=== PATIENT | male | born 1985 | race Caucasian/White ===

== ENCOUNTER 2017-04-15 15:09 | Inpatient (IN) | payer SELFPAY ==
[~2017-04-15] VITALS: Ht 193 cm; Wt 88.6 kg
--- OUTSIDE RECORDS SUMMARY | 2017-04-15 15:20 | XMS REPORT ---
Author Author HANNAH ROSARIO Organization [employer] Address Unknown Phone Unavailable Care Team Providers Care Fine Arts Model Name Role Phone HANNAH ROSARIO CP Unavailable Allergies No Known Allergies Problems Problem Type Condition Code Onset Dates Condition Status Problem Lumbago 724.2 Active Problem Insomnia, unspecified 780.52 Active Problem Thoracic or lumbosacral neuritis or radiculitis, unspecified 724.4 Active Assessment Scabies exposure Z20.89 Active Medications Medication Code System Code Instructions Start Date End Date Status Dosage Permethrin [facility] [address]-03 5 % Externally one time Dec 10, 2014 as directed at bedtime Results No Known Results Summary Purpose [employer] Submission
--- OUTSIDE RECORDS SUMMARY | 2017-04-15 15:20 | XMS REPORT | Continuity of Care Document ---
Author Author [facility] Address Unknown Phone Unavailable Allergies There is no data. Medications There is no data. Problems Date Dx Coded Attending Type Code Diagnosis Diagnosed By 03/13/2008 372.30 CONJUNCTIVITIS 03/13/2008 HANNAH ROSARIO APRN 372.30 CONJUNCTIVITIS 03/13/2008 372.30 CONJUNCTIVITIS 03/13/2008 372.30 CONJUNCTIVITIS 03/13/2008 372.30 CONJUNCTIVITIS 03/13/2008 FRANCISCO OLGUIN DO 372.30 CONJUNCTIVITIS 10/09/2010 300.00 anxiety 10/09/2010 305.1 NICOTINE DEPENDENCE 10/09/2010 780.79 FATIGUE 10/09/2010 780.99 loss of pleasure from usual activities (anhedonia) 10/09/2010 HANNAH ROSARIO APRN 300.00 anxiety 10/09/2010 HANNAH ROSARIO APRN 305.1 NICOTINE DEPENDENCE 10/09/2010 HANNAH ROSARIO APRN 780.79 FATIGUE 10/09/2010 HANNAH ROSARIO APRN 780.99 loss of pleasure from usual activities (anhedonia) 10/09/2010 300.00 anxiety 10/09/2010 305.1 NICOTINE DEPENDENCE 10/09/2010 780.79 FATIGUE 10/09/2010 780.99 loss of pleasure from usual activities (anhedonia) 10/09/2010 300.00 anxiety 10/09/2010 305.1 NICOTINE DEPENDENCE 10/09/2010 780.79 FATIGUE 10/09/2010 780.99 loss of pleasure from usual activities (anhedonia) 10/09/2010 300.00 anxiety 10/09/2010 305.1 NICOTINE DEPENDENCE 10/09/2010 780.79 FATIGUE 10/09/2010 780.99 loss of pleasure from usual activities (anhedonia) 10/09/2010 FRANCISCO OLGUIN DO 300.00 anxiety 10/09/2010 FRANCISCO OLGUIN DO 305.1 NICOTINE DEPENDENCE 10/09/2010 FRANCISCO OLGUIN DO 780.79 FATIGUE 10/09/2010 FRANCISCO OLGUIN DO 780.99 loss of pleasure from usual activities (anhedonia) 10/24/2010 296.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 10/24/2010 799.22 highly irritable 10/24/2010 HANNAH ROSARIO APRN 296.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 10/24/2010 HANNAH ROSARIO APRN 799.22 highly irritable 10/24/2010 296.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 10/24/2010 799.22 highly irritable 10/24/2010 296.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 10/24/2010 799.22 highly irritable 10/24/2010 296.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 10/24/2010 799.22 highly irritable 10/24/2010 FRANCISCO OLGUIN DO 296.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 10/24/2010 FRANICSCO OLGUIN DO 799.22 highly irritable 10/28/2010 296.80 MO BIPOLAR NOS 10/28/2010 HANNAH ROSARIO APRN 296.80 MO BIPOLAR NOS 10/28/2010 296.80 MO BIPOLAR NOS 10/28/2010 296.80 MO BIPOLAR NOS 10/28/2010 296.80 MO BIPOLAR NOS 10/28/2010 FRANCISCO OLGUIN DO 296.80 MO BIPOLAR NOS 12/04/2010 079.99 VIRAL SYNDROME 12/04/2010 HANNAH ROSARIO APRN 079.99 VIRAL SYNDROME 12/04/2010 079.99 VIRAL SYNDROME 12/04/2010 079.99 VIRAL SYNDROME 12/04/2010 079.99 VIRAL SYNDROME 12/04/2010 FRANCISCO OLGUIN DO 079.99 VIRAL SYNDROME 05/13/2011 724.2 lower back pain 05/13/2011 HANNAH ROSARIO APRN 724.2 lower back pain 05/13/2011 724.2 lower back pain 05/13/2011 724.2 lower back pain 05/13/2011 724.2 lower back pain 05/13/2011 FRANCISCO OLGUIN DO 724.2 lower back pain 06/11/2011 724.4 LUMBAR RADICULOPATHY 06/11/2011 HANNAH ROSARIO APRN 724.4 LUMBAR RADICULOPATHY 06/11/2011 724.4 LUMBAR RADICULOPATHY 06/11/2011 724.4 LUMBAR RADICULOPATHY 06/11/2011 724.4 LUMBAR RADICULOPATHY 06/11/2011 FRANCISCO OLGUIN DO 724.4 LUMBAR RADICULOPATHY 03/23/2012 780.52 INSOMNIA UNSPECIFIED 03/23/2012 780.52 INSOMNIA UNSPECIFIED 03/23/2012 780.52 INSOMNIA UNSPECIFIED 03/23/2012 FRANCISCO OLGUIN DO 780.52 INSOMNIA UNSPECIFIED Procedures There is no data. Results There is no data. Encounters ACCT No. Visit Date/Time Discharge Status Pt. Type Provider Facility Loc./Unit Complaint [id number] 12/20/2012 10:23:00 12/20/2012 23:59:59 [facility] Outpatient FRANCISCO OLGUIN DO [id number] 04/20/2012 10:47:00 04/20/2012 23:59:59 [facility] Outpatient [id number] 03/23/2012 11:26:00 03/23/2012 23:59:59 [facility] Outpatient [id number] 11/18/2011 13:21:00 11/18/2011 23:59:59 [facility] Outpatient [id number] 11/18/2011 13:21:00 11/18/2011 23:59:59 [facility] Outpatient HANNAH ROSARIO APRN [id number] 05/23/2012 10:32:00 Document Registration
--- NOTE | 2017-04-15 15:47 | ED Abdominal Pain ---
General Chief Complaint: Abdominal/GI Problems Stated Complaint: CONSTIPATION Nursing Triage Note: PATIENT STATES THAT HE HAS NOT HAD A NORMAL BOWEL MOVEMENT SINCE 04/04. Sepsis Screen: No Definite Risk Source of Information: Patient Exam Limitations: No Limitations History of Present Illness Date Seen by Provider: Apr 15, 2017 Time Seen by Provider: 15:45 Initial Comments To ER with reports of constipation. Last bowel movement 04/04/17. He's had some liquid stools but no formed stool. He has left lower quadrant abdominal pain. He reports nausea but no vomiting, no fevers or chills. He's been seen by [facility] and [place] as well as [facility] and states that he's been told that he is "full of air". He drank a full gallon of GoLYTELY without improvement in symptoms though he states that he did have some liquid stools after this. He denies any bloody or mucousy stools. He states that he has been told previously years ago that he had an episode of colitis. He does not report any known personal or family history of ulcerative colitis, Crohn's disease or colon cancer. Timing/Duration: 1-2 Days Severity/Quality: Cramping Location: LLQ, Generalized Abdomen Radiation: No Radiation Activities at Onset: None Allergies and Home Medications Allergies Coded Allergies: No Known Drug Allergies (Unverified , 04/15/17) Home Medications No Active Prescriptions or Reported Meds Patient Home Medication List Home Medication List Reviewed: Yes Review of Systems Constitutional: see HPI, No chills, No fever EENTM: No Symptoms Reported Respiratory: No Symptoms Reported Cardiovascular: No Symptoms Reported Gastrointestinal: See HPI, Abdominal Pain, Constipated, Denies Diarrhea, Nausea Genitourinary: No Symptoms Reported Musculoskeletal: no symptoms reported Skin: no symptoms reported Psychiatric/Neurological: No Symptoms Reported Past Xxvlghr-Miyijf-Ntwght Hx Patient Social History Recent Foreign Travel: No Contact w/Someone Who Travel: No Recent Infectious Disease Expo: No Physical Exam Vital Signs VS - Last 72 Hours, by Label 04/15/17 15:40 Temp 97.9 Pulse 113 Resp 20 B/P (MAP) 131/89 (103) Pulse Ox 98 O2 Delivery Room Air Capillary Refill : Less Than 3 Seconds General Appearance: WD/WN, no apparent distress HEENT: PERRL/EOMI, normal ENT inspection Neck: non-tender, full range of motion Respiratory: no respiratory distress, no accessory muscle use Cardiovascular: regular rate, rhythm, no murmur Gastrointestinal: normal bowel sounds, soft, tenderness (left lower quadrant tenderness to palpation, bowel sounds present) Extremities: normal range of motion, non-tender Neurologic/Psychiatric: alert, normal mood/affect, oriented x 3 Skin: normal color, warm/dry Progress/Results/Core Measures Results/Orders Lab Results Laboratory Tests Test 04/15/17 15:45 04/15/17 16:00 Range/Units White Blood Count 10.8 4.3-11.0 10^3/uL Red Blood Count 4.30 L 4.35-5.85 10^6/uL Hemoglobin 13.7 13.3-17.7 G/DL Hematocrit 39 L 40-54 % Mean Corpuscular Volume 91 80-99 FL Mean Corpuscular Hemoglobin 32 25-34 PG Mean Corpuscular Hemoglobin Concent 35 32-36 G/DL Red Cell Distribution Width 11.9 10.0-14.5 % Platelet Count 349 130-400 10^3/uL Mean Platelet Volume 10.0 7.4-10.4 FL Neutrophils (%) (Auto) 79 H 42-75 % Lymphocytes (%) (Auto) 11 L 12-44 % Monocytes (%) (Auto) 10 0-12 % Eosinophils (%) (Auto) 0 0-10 % Basophils (%) (Auto) 0 0-10 % Neutrophils # (Auto) 8.5 H 1.8-7.8 X 10^3 Lymphocytes # (Auto) 1.2 1.0-4.0 X 10^3 Monocytes # (Auto) 1.1 H 0.0-1.0 X 10^3 Eosinophils # (Auto) 0.0 0.0-0.3 10^3/uL Basophils # (Auto) 0.0 0.0-0.1 10^3/uL Erythrocyte Sedimentation Rate 44 H 0-15 MM/HR Sodium Level 134 L 135-145 MMOL/L Potassium Level 4.0 3.6-5.0 MMOL/L Chloride Level 98 98-107 MMOL/L Carbon Dioxide Level 27 21-32 MMOL/L Anion Gap 9 5-14 MMOL/L Blood Urea Nitrogen 8 7-18 MG/DL Creatinine 0.82 0.60-1.30 MG/DL Estimat Glomerular Filtration Rate > 60 BUN/Creatinine Ratio 10 Glucose Level 89 70-105 MG/DL Calcium Level 9.3 8.5-10.1 MG/DL Total Bilirubin 1.1 H 0.1-1.0 MG/DL Aspartate Amino Transf (AST/SGOT) 36 H 5-34 U/L Alanine Aminotransferase (ALT/SGPT) 45 0-55 U/L Alkaline Phosphatase 66 40-136 U/L C-Reactive Protein High Sensitivity 13.87 H 0.00-0.50 MG/DL Total Protein 8.4 H 6.4-8.2 GM/DL Albumin 3.8 3.2-4.5 GM/DL Lipase 10 8-78 U/L Urine Color YELLOW Urine Clarity CLEAR Urine pH 6 5-9 Urine Specific [place] 1.015 L 1.016-1.022 Urine Protein 1+ H NEGATIVE Urine Glucose (UA) NEGATIVE NEGATIVE Urine Ketones 4+ H NEGATIVE Urine Nitrite NEGATIVE NEGATIVE Urine Bilirubin NEGATIVE NEGATIVE Urine Urobilinogen 1 NORMAL MG/DL Urine Leukocyte Esterase NEGATIVE NEGATIVE Urine RBC (Auto) NEGATIVE NEGATIVE Urine RBC NONE /HPF Urine WBC NONE /HPF Urine Crystals NONE /LPF Urine Bacteria NONE /HPF Urine Casts NONE /LPF Urine Mucus SMALL H /LPF Urine Culture Indicated NO My Orders Orders - DEANGELO NGO APRN Cbc With Automated Diff (04/15/17 15:44) Comprehensive Metabolic Panel (04/15/17 15:44) Ua Culture If Indicated (04/15/17 15:44) Lipase (04/15/17 15:44) Saline Lock/Iv-Start (04/15/17 15:44) Ct Abdomen/Pelvis W (04/15/17 15:59) Iohexol Injection (Omnipaque 350 Mg/Ml 1 (04/15/17 16:45) Sodium Chloride Flush (Catheter Flush Sy (04/15/17 16:45) Ns (Ivpb) (Sodium Chloride 0.9%) (04/15/17 16:45) Pharmacy Communication (Pharmacy Communi (04/15/17 16:33) Lactated Ringers (Lr 1000 Ml Iv Solution (04/15/17 16:45) Erythrocyte Sedimentation Rate (04/15/17 17:11) Hs C Reactive Protein (04/15/17 17:11) Asca G&A (04/15/17 17:11) Anti Neutrophil Cytoplasm Ab (04/15/17 17:11) Fentanyl Injection (Sublimaze Injection (04/15/17 18:00) Ondansetron Injection (Zofran Injectio (04/15/17 18:00) Abdomen/Kub 1view (04/15/17 18:11) Medications Given in ED Vital Signs/I&O Vital Sign - Last 12Hours 04/15/17 15:40 Temp 97.9 Pulse 113 Resp 20 B/P (MAP) 131/89 (103) Pulse Ox 98 O2 Delivery Room Air Intake and Output 04/16/17 00:00 Intake Total 1000 ml Balance 1000 ml Blood Pressure Mean: 103 Diagnostic Imaging Diagonstic Imaging: CT Comments NAME: HEATHER MARCANO [facility] REC#: [id number] PT STATUS: REG ER : 1985 PHYSICIAN: DEANGELO NGO APRN ADMIT DATE: 04/15/17/ER Draft Date of Exam:04/15/17 CT ABDOMEN/PELVIS W CLINICAL INDICATION: Patient has a history of blockages. Kidney and bowel pain x 10 days. Patient not passing gas. EXAM: CT scan of the abdomen and pelvis performed with 100 cc Omnipaque 350 IV contrast. Coronal and sagittal reformatted images were created. COMPARISON: None. FINDINGS: Visualized lung bases are clear. There is a 1.3 cm peripherally sclerotic lucent area centrally within the L5 vertebral body and also an area involving the upper endplate of the L4 vertebral body. These areas are of unknown significance. Otherwise, the bones show no other significant abnormality. There is a roughly 18 mm area of low density involving left lobe of liver along the falciform ligament, likely representing focal fatty infiltration. Otherwise, the liver is unremarkable. The spleen, pancreas, gallbladder and adrenal glands are unremarkable. There is a 6 mm nonobstructing stone within the mid to upper left kidney. There is an 8 mm circumscribed low-density lesion involving the inferior pole of the left kidney. It is too small to characterize, but likely represents a cyst. Otherwise, both kidneys are unremarkable. There is no hydronephrosis. Ureters show no significant abnormality. There is a long segment of circumferential bowel wall thickening involving the mid descending colon and extend all the way to the proximal sigmoid colon. There is mildly dilated more proximal large bowel measuring up to 4.5 cm with air-fluid levels seen throughout the colon. There is also mildly dilated loops of small bowel measuring up to 2.7 cm in the distal colon with air-fluid levels seen. The more proximal duodenum, jejunum and proximal ileum are decompressed. The stomach is decompressed. There is fat stranding and mild fluid in the left pericholecystic gutter in the region of the segment of intestine. The colon distal to the proximal sigmoid colon is decompressed with bowel wall thickening. It is unknown if the wall thickening is related to the more proximal descending colon bowel wall thickening or if this is just its appearance due to being decompressed. There is minimal free fluid in the pelvis. There is no significant lymphadenopathy seen. The bladder is decompressed and grossly unremarkable as visualized. There are some phleboliths seen in the pelvis. The appendix is fluid dilated, measuring up to 1.2 cm and is retroflexed up the posterior aspect of the right abdominal region. There is no associated appendiceal bowel wall thickening or adjacent fat stranding. It is possible that the appendix may just be fluid filled from more distal obstruction. IMPRESSION: 1: There is a long segment of circumferential bowel wall thickening seen from the mid descending colon all the way to the proximal sigmoid colon with adjacent fat stranding and fluid seen in the region. Considerations for this appearance may represent neoplasm given the amorphous mass like configuration. Other consideration may include inflammatory bowel disease such as Crohn's. Infectious etiology or diverticulitis also cannot be completely excluded. There is no lymphadenopathy. There is note of proximal obstruction of the small bowel and colon with multiple air-fluid levels seen, as described above. There is note of circumferential bowel wall thickening seen distal to the proximal sigmoid colon which may just be due to its decompressed state, other consideration may be related to extension of the more pronounced disease in the descending colon. 2: There is a 1.8 cm low-density area involving the left lobe of the liver. Considerations would include focal fatty infiltration, but given the lesion in the left colon, a neoplastic process cannot be completely excluded, although is expected to be less likely. 3: There is a 1.3 cm peripherally sclerotic lucent area within the L5 vertebral body with component extending to the upper endplate. This is nonspecific. Schmorl's node cannot be completely excluded. MRI of the lumbar spine with and without IV contrast would be suggested to further evaluate. There is also an upper endplate lytic area involving the upper L4 vertebral body as well. Dictated on workstation # [id number] Dict: 04/15/17 1702 Trans: 04/15/17 1736 [facility] [id number] Interpreted by: ELISABET WADSWORTH MD Electronically signed by: Departure Communication (Admissions) Time/Spoke to Admitting Phy: 17:51 Communication I did discuss the case with Dr. Berg. Given the bowel obstruction and patient 's pain we'll admit him, fluids, IV antibiotics, schedule him for colonoscopy. I did not discuss nasogastric tube placement with Dr. Berg but given the distention of proximal small bowel I will place nasogastric tube. Impression Impression: Primary Impression: Small bowel obstruction Additional Impression: descending colon inflammation Disposition: 01 HOME, SELF-CARE Condition: Stable Admissions Decision to Admit Reason: Admit from ER (General) Decision to Admit/Date: Apr 15, 2017 Time/Decision to Admit Time: 17:51 Departure-Patient Inst. Decision time for Depature: 17:50 Referrals: [facility] (PCP/Family) Primary Care Physician Scripts No Active Prescriptions or Reported Meds DEANGELO NGO APRN Apr 15, 2017 15:47
[2017-04-15 16:03] LABS: BASOPHILS % (AUTO) 0 % (0-10); EOSINOPHILS % (AUTO) 0 % (0-10); HEMATOCRIT 39 % (40-54); HEMOGLOBIN 13.7 G/DL (13.3-17.7); LYMPHOCYTES # (AUTO) 1.2 X 10^3 (1.0-4.0); LYMPHOCYTES % (AUTO) 11 % (12-44); MEAN CORPUSCULAR HEMOGLOBIN 32 PG (25-34); MEAN CORPUSCULAR HGB CONC 35 G/DL (32-36); MEAN CORPUSCULAR VOLUME 91 FL (80-99); MONOCYTES # (AUTO) 1.1 X 10^3 (0.0-1.0); MONOCYTES % (AUTO) 10 % (0-12); NEUTROPHILS # (AUTO) 8.5 X 10^3 (1.8-7.8); NEUTROPHILS % (AUTO) 79 % (42-75); PLATELET COUNT 349 10^3/uL (130-400); RED CELL DISTRIBUTION WIDTH 11.9 % (10.0-14.5); WHITE BLOOD COUNT 10.8 10^3/uL (4.3-11.0)
[2017-04-15 16:11] LABS: BILIRUBIN,URINE NEGATIVE (NEGATIVE); CLARITY,URINE CLEAR; COLOR,URINE YELLOW; GLUCOSE, URINE (UA) NEGATIVE (NEGATIVE); KETONES,URINE 4+ (NEGATIVE); LEUKOCYTE ESTERASE ,URINE NEGATIVE (NEGATIVE); NITRITE,URINE NEGATIVE (NEGATIVE); PH,URINE 6 (5-9); PROTEIN,URINE 1+ (NEGATIVE); UROBILINOGEN,URINE 1 MG/DL (NORMAL)
[2017-04-15 16:27] LABS: CARBON DIOXIDE 27 MMOL/L (21-32); CHLORIDE 98 MMOL/L (98-107); SODIUM 134 MMOL/L (135-145)
[2017-04-15 16:28] LABS: ALANINE AMINOTRANSFERASE 45 U/L (0-55); ALBUMIN 3.8 GM/DL (3.2-4.5); ALKALINE PHOSPHATASE 66 U/L (40-136); BILIRUBIN,TOTAL 1.1 MG/DL (0.1-1.0); BUN/CREATININE RATIO 10; CALCIUM 9.3 MG/DL (8.5-10.1); CREATININE SERUM 0.82 MG/DL (0.60-1.30); GFR ESTIMATED > 60; GLUCOSE 89 MG/DL (70-105); LIPASE 10 U/L (8-78); TOTAL PROTEIN 8.4 GM/DL (6.4-8.2)
[2017-04-15] MEDS ORDERED: NS 250 ML (IVPB) BAG IV ONE (16:45)
[2017-04-15] MEDS ORDERED: CATHETER FLUSH 10 ML SYR IV PRN (16:45)
[2017-04-15] MEDS ORDERED: IOHEXOL 350 MG/ML 100 ML (OMNIPAQUE 350) VIAL IV ONE (16:45)
[2017-04-15] MEDS ORDERED: LACTATED RINGERS 1,000 ML IV SCH (16:45)
--- NOTE | 2017-04-15 17:36 | Diagnostic Imaging Report ---
CLINICAL INDICATION: Patient has a history of blockages. Kidney and bowel pain x 10 days. Patient not passing gas. EXAM: CT scan of the abdomen and pelvis performed with 100 cc Omnipaque 350 IV contrast. Coronal and sagittal reformatted images were created. COMPARISON: None. FINDINGS: Visualized lung bases are clear. There is a 1.3 cm peripherally sclerotic lucent area centrally within the L5 vertebral body which extends toward the superior endplate and also an area involving the upper endplate of the L4 vertebral body. These areas are of unknown significance. Otherwise, the bones show no other significant abnormality. There is a roughly 18 mm area of low density involving left lobe of liver along the falciform ligament, likely representing focal fatty infiltration. Otherwise, the liver is unremarkable. The spleen, pancreas, gallbladder and adrenal glands are unremarkable. There is a 6 mm nonobstructing stone within the mid to upper left kidney. There is an 8 mm circumscribed low-density lesion involving the inferior pole of the left kidney. It is too small to characterize, but likely represents a cyst. Otherwise, both kidneys are unremarkable. There is no hydronephrosis. Ureters show no significant abnormality. There is a long segment of circumferential bowel wall thickening involving the mid descending colon and extend all the way to the proximal sigmoid colon. There is mildly dilated more proximal large bowel measuring up to 4.5 cm with air-fluid levels seen throughout the colon. There is also mildly dilated loops of small bowel measuring up to 2.7 cm in the distal colon with air-fluid levels seen. The more proximal duodenum, jejunum and proximal ileum are decompressed. The stomach is decompressed. There is fat stranding and mild fluid in the left pericholecystic gutter in the region of the segment of intestine. The colon distal to the proximal sigmoid colon is decompressed with bowel wall thickening. It is unknown if the wall thickening is related to the more proximal descending colon bowel wall thickening or if this is just its appearance due to being decompressed. There is minimal free fluid in the pelvis. There is no significant lymphadenopathy seen. The bladder is decompressed and grossly unremarkable as visualized. There are some phleboliths seen in the pelvis. The appendix is fluid dilated, measuring up to 1.2 cm and is retroflexed up the posterior aspect of the right abdominal region. There is no associated appendiceal bowel wall thickening or adjacent fat stranding. It is possible that the appendix may just be fluid filled from more distal obstruction. IMPRESSION: 1: There is a long segment of circumferential bowel wall thickening seen from the mid descending colon all the way to the proximal sigmoid colon with adjacent fat stranding and fluid seen in the region. Considerations for this appearance may represent neoplasm given the amorphous mass like configuration. Other consideration may include inflammatory bowel disease such as Crohn's. Infectious etiology or diverticulitis also cannot be completely excluded. There is no lymphadenopathy. There is note of proximal obstruction of the small bowel and colon with multiple air-fluid levels seen, as described above. There is note of circumferential bowel wall thickening seen distal to the proximal sigmoid colon which may just be due to its decompressed state, other consideration may be related to extension of the more pronounced disease in the descending colon. 2: There is a 1.8 cm low-density area involving the left lobe of the liver. Considerations would include focal fatty infiltration, but given the lesion in the left colon, a neoplastic process cannot be completely excluded, although is expected to be less likely. 3: There is a 1.3 cm peripherally sclerotic lucent area within the L5 vertebral body with component extending to the upper endplate. This is nonspecific. Schmorl's node cannot be completely excluded. MRI of the lumbar spine with and without IV contrast would be suggested to further evaluate. There is also an upper endplate lytic area involving the upper L4 vertebral body as well. Dictated by: Dictated on workstation # [id number]
[2017-04-15] MEDS ORDERED: fentaNYL INJECTION 100 MCG/2 ML AMP IVP ONE (18:00)
[2017-04-15] MEDS ORDERED: ONDANSETRON 4 MG/2 ML (SDV) Z0FRAN IVP ONE (18:00)
--- OUTSIDE RECORDS SUMMARY | 2017-04-15 18:26 | XMS REPORT | Continuity of Care Document ---
Author Author [facility] Address Unknown Phone Unavailable Allergies [...] 10/09/2010 HANNAH ROSARIO APRN 300.00 anxiety 10/09/2010 HANNHA ROSARIO APRN 305.1 NICOTINE DEPENDENCE 10/09/2010 HANNAH [...] OLGUIN DO 296.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 10/24/2010 FRANCISCO OLGUIN DO 799.22 highly irritable 10/28/2010 296.80 [...] Status Pt. Type Provider Facility Loc./Unit Complaint [id number] 12/20/2012 10:23:00 12/20/2012 23:59:59 [facility] Outpatient FRANCISCO OLGUIN DO [id number] 04/20/2012 10:47:00 04/20/2012 23:59:59 [facility] Outpatient [id number] 03/23/2012 11:26:00 03/23/2012 23:59:59 [facility] Outpatient [id number] 11/18/2011 13:21:00 11/18/2011 23:59:59 [facility] Outpatient [id number] 11/18/2011 13:21:00 11/18/2011 23:59:59 [facility] Outpatient HANNAH ROSARIO APRN [id number] 05/23/2012 10:32:00 Document Registration
--- NOTE | 2017-04-15 18:36 | Diagnostic Imaging Report ---
EXAMINATION: Portable supine KUB at 06:24 p.m. INDICATION: NG line placement. FINDINGS: A single supine view was obtained. In the interval since the CT abdomen/pelvis exam performed earlier today, an NG line has been inserted. The tip of the line overlies the gastric body and seems to be in good position. There is excretion of the contrast used for the CT exam by both kidneys. There is some gas in both the large and small bowel in a nonspecific fashion. IMPRESSION: The tip of the newly inserted NG line overlies the gastric body and seems to be in good position. Dictated by: Dictated on workstation # [id number]
[2017-04-15 18:45] VITALS: BP 166/88
[2017-04-15] MEDS ORDERED: ONDANSETRON 4 MG/2 ML (SDV) Z0FRAN IV PRN (19:00)
[2017-04-15 19:30] VITALS: BP 166/88
[2017-04-15] MEDS: NS W/KCL 40 MEQ/L 1,000 ML IV SCH (20:09)
[2017-04-15] MEDS: metroNIDAZOLE 500 MG/100 ML IVPB (PRE-MIX) IV SCH (20:09)
[2017-04-15] MEDS: fentaNYL INJECTION 100 MCG/2 ML AMP IV PRN (20:58)
[2017-04-15] MEDS: CIPROFLOXACIN 400 MG/D5W 200 ML (PRE-MIX) IV SCH (22:06)
[2017-04-16] VITALS (7 sets, daily range): BP systolic 125–146; BP diastolic 68–83
[2017-04-16] MEDS: fentaNYL INJECTION 100 MCG/2 ML AMP IV PRN ×5 (00:02→12:09)
[2017-04-16] MEDS: metroNIDAZOLE 500 MG/100 ML IVPB (PRE-MIX) IV SCH ×3 (03:05→17:54)
[2017-04-16] MEDS: NS W/KCL 40 MEQ/L 1,000 ML IV SCH (06:16)
[2017-04-16] MEDS: CIPROFLOXACIN 400 MG/D5W 200 ML (PRE-MIX) IV SCH ×2 (06:20→18:30)
[2017-04-16 06:45] LABS: BASOPHILS % (AUTO) 0 % (0-10); EOSINOPHILS # (AUTO) 0.1 10^3/uL (0.0-0.3); EOSINOPHILS % (AUTO) 1 % (0-10); HEMATOCRIT 35 % (40-54); HEMOGLOBIN 12.2 G/DL (13.3-17.7); LYMPHOCYTES # (AUTO) 1.6 X 10^3 (1.0-4.0); LYMPHOCYTES % (AUTO) 15 % (12-44); MEAN CORPUSCULAR HEMOGLOBIN 31 PG (25-34); MEAN CORPUSCULAR HGB CONC 35 G/DL (32-36); MEAN CORPUSCULAR VOLUME 91 FL (80-99); MEAN PLATELET VOLUME 10.3 FL (7.4-10.4); MONOCYTES # (AUTO) 1.3 X 10^3 (0.0-1.0); MONOCYTES % (AUTO) 12 % (0-12); NEUTROPHILS # (AUTO) 7.5 X 10^3 (1.8-7.8); NEUTROPHILS % (AUTO) 72 % (42-75); PLATELET COUNT 313 10^3/uL (130-400); RED BLOOD COUNT 3.88 10^6/uL (4.35-5.85); RED CELL DISTRIBUTION WIDTH 12.1 % (10.0-14.5); WHITE BLOOD COUNT 10.4 10^3/uL (4.3-11.0)
[2017-04-16 07:05] LABS: ALANINE AMINOTRANSFERASE 34 U/L (0-55); ALBUMIN 3.4 GM/DL (3.2-4.5); ALKALINE PHOSPHATASE 61 U/L (40-136); BILIRUBIN,TOTAL 0.9 MG/DL (0.1-1.0); BUN/CREATININE RATIO 8; CALCIUM 8.8 MG/DL (8.5-10.1); CARBON DIOXIDE 25 MMOL/L (21-32); CHLORIDE 102 MMOL/L (98-107); CREATININE SERUM 0.75 MG/DL (0.60-1.30); GFR ESTIMATED > 60; GLUCOSE 95 MG/DL (70-105); POTASSIUM 4.4 MMOL/L (3.6-5.0); SODIUM 135 MMOL/L (135-145); TOTAL PROTEIN 7.1 GM/DL (6.4-8.2)
[2017-04-16] MEDS ORDERED: INFLUENZA TRIvalent 2017-2018 0.5 ML/45 MCG SYR IM ONE (07:30)
[2017-04-16] MEDS ORDERED: DIATRIZOATE MEGLUM/SODIUM 37% 120 ML (GASTROGRAFIN) RC ONE (13:00)
--- NOTE | 2017-04-16 13:12 | History & Physicial ---
History of Present Illness History of Present Illness Reason for visit/HPI left sided abdominal pain and constipation for 2 weeks Date of Admission Apr 15, 2017 at 6:22 pm Date Seen by Provider: Apr 16, 2017 Time Seen by Provider: 10:35 I consulted on this patient on 04/16/17 13:09 Attending Physician Albin Driscoll MD Admitting Physician [facility] D[facility] - [facility] Of Consult Allergies and Home Medications Allergies Coded Allergies: No Known Drug Allergies (Unverified , 04/15/17) Home Medications No Active Prescriptions or Reported Meds Patient Home Medication List Home Medication List Reviewed: Yes Past Caggudj-Bkhdai-Apiczw Hx Patient Social History Marrital Status: Employed/Student: employed Alcohol Use: Occasionally Uses Alcohol Beverage of Choice: Beer Recreational Drug Use: No Smoking Status: Current Everyday Smoker Type Used: Cigarettes 2nd Hand Smoke Exposure: Yes Physical Abuse Screen: No Sexual Abuse: No Recent Foreign Travel: No Contact w/other who traveled: No Recent Hopitalizations: No Recent Infectious Disease Expo: No Seasonal Allergies Seasonal Allergies: Yes Surgeries Yes (SHOULDER) Orthopedic Respiratory No Cardiovascular No Neurological No Reproductive System Sexually Transmitted Disease: No HIV/AIDS: No Genitourinary Yes Kidney Infection Gastrointestinal Yes Colitis, Gastroesophageal Reflux, Chronic Constipation Musculoskeletal Yes Chronic Back Pain Endocrine History of Endocrine Disorders: No HEENT History of HEENT Disorders: No Cancer No Psychosocial History of Psychiatric Problem: Yes Behavioral Health Disorders: Bipolar, Depression Integumentary History of Skin or Integumenta: No Blood Transfusions History of Blood Disorders: No Constitutional: malaise EENTM: no symptoms reported Respiratory: no symptoms reported Cardiovascular: no symptoms reported Gastrointestinal: see HPI Genitourinary: no symptoms reported Musculoskeletal: back pain Skin: no symptoms reported Psychiatric/Neurological: No Symptoms Reported Physical Exam Vital Signs Vital Signs - First Documented 04/15/17 15:40 Temp 97.9 Pulse 113 Resp 20 B/P (MAP) 131/89 (103) Pulse Ox 98 O2 Delivery Room Air Capillary Refill : Less Than 3 Seconds General Appearance: Anxious HEENT: Normal ENT Inspection Neck: Normal Inspection Respiratory: Lungs Clear Cardiovascular: Regular Rate, Rhythm Gastrointestinal: Soft, Tenderness Rectal: Deferred Back: Normal Inspection Extremity: Normal Inspection Neurologic/Psychiatric: Alert, Oriented x3 Skin: Warm/Dry Comments mild tenderness over the left lower quadrant. No hernia. No mass palpable. Assessment/Plan Assessment and Plan gentleman with a stricture along the descending colon. Water soluble contrast study confirms an inflammatory stricture with no evidence of complete obstruction. Reasonable to treat conservatively at this point. Problems: Admission Diagnosis Admission Status: Inpatient Order (span 2 midnights) Reason for Inpatient Admission: Requires IV antibiotics and reassessment Clinical Quality Measures DVT/VTE Risk/Contraindication: Risk Factor Score Per Nursin RFS Level Per Nursing on Admit: 3=High ALBIN DRISCOLL MD Apr 16, 2017 1:12 pm
[2017-04-16] MEDS ORDERED: fentaNYL INJECTION 1,000 MCG in NS (IVPB) 80 ML IV SCH (13:45)
[2017-04-16] MEDS ORDERED: NICOTINE 14 MG (NICODERM) PATCH TD NR (13:45)
--- NOTE | 2017-04-16 14:08 | Diagnostic Imaging Report ---
INDICATION: Distal colonic obstruction and abnormal recent CT study. This study is performed for further evaluation. Gastrografin contrast was infused into the colon in a retrograde fashion through a rectal tip. Spot films of the colon were obtained. The rectum is unremarkable. The sigmoid colon does show occasional diverticuli. There is a long segment of significant luminal narrowing and irregularity involving the mid descending colon approximately 10-11 cm in length. Gastrografin contrast did pass through the area of narrowing into the more proximal segments of the colon. There was opacification of the splenic flexure and transverse colon. No complete obstruction is identified. IMPRESSION: 10-11 cm segment of significant irregularity and luminal narrowing of the descending colon, as described. Contrast did pass through the narrowed channel. Findings may be on inflammatory basis. Neoplasm cannot be entirely excluded and colonoscopy after course of therapy is recommended for further evaluation. Dictated by: Dictated on workstation # [id number]
[2017-04-16] MEDS ORDERED: fentaNYL INJECTION 100 MCG/2 ML AMP IV PRN (15:00)
[2017-04-16] MEDS: AA 4.25% W/LYTES IN D5W IV SOL 1,000 ML IV SCH ×2 (15:11→23:41)
[2017-04-16] MEDS: METOCLOPRAMIDE INJ 10 MG/2 ML (REGLAN) IVP SCH ×2 (17:54→23:41)
[2017-04-17] MEDS: metroNIDAZOLE 500 MG/100 ML IVPB (PRE-MIX) IV SCH ×3 (02:47→17:53)
[2017-04-17 04:30] VITALS: BP 131/79
[2017-04-17] MEDS: AA 4.25% W/LYTES IN D5W IV SOL 1,000 ML IV SCH ×3 (05:50→18:55)
[2017-04-17] MEDS: CIPROFLOXACIN 400 MG/D5W 200 ML (PRE-MIX) IV SCH ×2 (06:01→18:55)
[2017-04-17] MEDS: METOCLOPRAMIDE INJ 10 MG/2 ML (REGLAN) IVP SCH ×4 (06:01→23:33)
[2017-04-17 08:00] VITALS: BP 140/72
--- NOTE | 2017-04-17 11:07 | Progress Note (SOAP) ---
Subjective Date Seen by Provider: Apr 17, 2017 Time Seen by Provider: 10:45 Subjective/Events-last exam left sided abdominal pain much improved. Passing flatus and having bowel movements. Reports scrotal swelling. Review of Systems General: No Chills, No Night Sweats, No Fatigue, No Malaise HEENT: No Head Aches, No Eye Pain, No Ear Pain, No Dysphasia, No Sinus Congestion, No Post Nasal Drip, No Sore Throat Pulmonary: Cough Cardiovascular: No: Chest Pain, Palpitations, Orthopnea, Paroxysmal Noc. Dyspnea, Edema, Lt Headedness Gastrointestinal: No: Nausea, Vomiting, Abdominal Pain, Diarrhea, Constipation , Melena, Hematochezia Genitourinary: No Dysuria, No Frequency, No Incontinence, No Hematuria, No Retention Musculoskeletal: No: other, neck pain, shoulder pain, arm pain, back pain, hand pain, leg pain, foot pain Neurological: No: Weakness, Numbness, Incoordination, Change in speech, Confusion, Seizures, Other Objective Exam Vital Signs Date Time Temp Pulse Resp B/P (MAP) Pulse Ox O2 Delivery O2 Flow Rate FiO2 04/17/17 08:00 98.9 82 18 140/72 (94) 96 Room Air 04/17/17 04:30 98.3 80 20 131/79 (96) 97 Room Air 04/16/17 23:40 97.3 82 18 125/78 (94) 98 Room Air 04/16/17 20:59 97.0 86 18 134/83 (100) 98 Room Air 04/16/17 16:45 98.4 91 18 136/82 (100) 97 Room Air 04/16/17 12:00 98.1 72 18 132/68 (89) 94 Room Air I & O 04/17/17 07:00 Intake Total 2950 ml Output Total 1250 ml Balance 1700 ml Capillary Refill : Less Than 3 Seconds General Appearance: No Apparent Distress Neck: Normal Inspection Respiratory: Lungs Clear Cardiovascular: Regular Rate, Rhythm Gastrointestinal: non tender, soft Extremity: Normal Inspection Neurologic/Psychiatric: Alert, Oriented x3 Skin: Warm/Dry Other comments scrotal edema with no tenderness of the testicles. No evidence of torsion. Assessment/Plan Assessment/Plan Assess & Plan/Chief Complaint gentleman with long stricture of the descending colon, inflammatory nature. Differential diagnoses would include diverticular stricture and inflammatory bowel disease. Reasonable to continue IV antibiotics and observed. Once discharged, outpatient colonoscopy would be in order. Final Diagnosis stricture of the descending colon. Clinical Quality Measures Admission Status Admission Dx gentleman with a stricture along the descending colon. Water soluble contrast study confirms an inflammatory stricture with no evidence of complete obstruction. Reasonable to treat conservatively at this point. DVT/VTE Risk/Contraindication: Risk Factor Score Per Nursin RFS Level Per Nursing on Admit: 3=High ALBIN DRISCOLL MD Apr 17, 2017 11:07 am
[2017-04-17 12:00] VITALS: BP 134/79
[2017-04-17] MEDS ORDERED: NICOTINE PATCH REMOVAL TP SCH (13:44)
[2017-04-17 16:55] VITALS: BP 125/73
[2017-04-17 21:40] VITALS: BP 125/73
[2017-04-18 00:50] VITALS: BP 129/78
[2017-04-18] MEDS: metroNIDAZOLE 500 MG/100 ML IVPB (PRE-MIX) IV SCH ×3 (01:34→18:08)
[2017-04-18 06:01] LABS: BASOPHILS % (AUTO) 0 % (0-10); EOSINOPHILS # (AUTO) 0.2 10^3/uL (0.0-0.3); EOSINOPHILS % (AUTO) 2 % (0-10); HEMATOCRIT 35 % (40-54); HEMOGLOBIN 11.8 G/DL (13.3-17.7); LYMPHOCYTES # (AUTO) 1.4 X 10^3 (1.0-4.0); LYMPHOCYTES % (AUTO) 20 % (12-44); MEAN CORPUSCULAR HEMOGLOBIN 32 PG (25-34); MEAN CORPUSCULAR HGB CONC 34 G/DL (32-36); MEAN CORPUSCULAR VOLUME 92 FL (80-99); MEAN PLATELET VOLUME 10.4 FL (7.4-10.4); MONOCYTES # (AUTO) 0.8 X 10^3 (0.0-1.0); MONOCYTES % (AUTO) 11 % (0-12); NEUTROPHILS % (AUTO) 68 % (42-75); PLATELET COUNT 320 10^3/uL (130-400); RED BLOOD COUNT 3.74 10^6/uL (4.35-5.85); RED CELL DISTRIBUTION WIDTH 12.1 % (10.0-14.5); WHITE BLOOD COUNT 7.3 10^3/uL (4.3-11.0)
[2017-04-18] MEDS: METOCLOPRAMIDE INJ 10 MG/2 ML (REGLAN) IVP SCH ×3 (06:09→18:08)
[2017-04-18] MEDS: CIPROFLOXACIN 400 MG/D5W 200 ML (PRE-MIX) IV SCH ×2 (06:09→19:36)
[2017-04-18] MEDS: AA 4.25% W/LYTES IN D5W IV SOL 1,000 ML IV SCH ×3 (06:16→18:08)
[2017-04-18 06:27] LABS: ALANINE AMINOTRANSFERASE 21 U/L (0-55); ALBUMIN 3.2 GM/DL (3.2-4.5); ALKALINE PHOSPHATASE 49 U/L (40-136); BILIRUBIN,TOTAL 0.3 MG/DL (0.1-1.0); BUN/CREATININE RATIO 14; CALCIUM 8.9 MG/DL (8.5-10.1); CARBON DIOXIDE 28 MMOL/L (21-32); CHLORIDE 103 MMOL/L (98-107); CREATININE SERUM 0.76 MG/DL (0.60-1.30); GFR ESTIMATED > 60; GLUCOSE 110 MG/DL (70-105); SODIUM 137 MMOL/L (135-145); TOTAL PROTEIN 6.9 GM/DL (6.4-8.2)
[2017-04-18 06:47] LABS: ERYTHROCYTE SEDIMENTATION RATE 49 MM/HR (0-15)
[2017-04-18 08:00] VITALS: BP 142/68
[2017-04-18] MEDS ORDERED: morphine INJ 4 MG/ML 1 ML (VIAL/SYRINGE) IVP PRN (12:30)
[2017-04-18] MEDS ORDERED: MAGNESIUM CITRATE 300 ML BTL PO NR ×2 (12:30→17:00)
[2017-04-18 16:40] VITALS: BP 131/71
[2017-04-18] MEDS: morphine INJ 10 MG/ML 1ML (SYR OR VIAL) IV PRN ×3 (16:40→21:14)
[2017-04-18 19:04] VITALS: BP 131/71
[2017-04-19] MEDS: METOCLOPRAMIDE INJ 10 MG/2 ML (REGLAN) IVP SCH ×5 (00:02→23:17)
[2017-04-19 00:30] VITALS: BP 127/68
[2017-04-19] MEDS: metroNIDAZOLE 500 MG/100 ML IVPB (PRE-MIX) IV SCH ×3 (01:48→17:28)
[2017-04-19] MEDS: morphine INJ 10 MG/ML 1ML (SYR OR VIAL) IV PRN ×3 (03:55→14:07)
[2017-04-19] MEDS: CIPROFLOXACIN 400 MG/D5W 200 ML (PRE-MIX) IV SCH ×2 (05:51→18:28)
[2017-04-19] MEDS: AA 4.25% W/LYTES IN D5W IV SOL 1,000 ML IV SCH ×3 (05:52→22:23)
[2017-04-19 08:00] VITALS: BP 121/55
[2017-04-19] MEDS ORDERED: MAGNESIUM CITRATE 300 ML BTL PO NR ×2 (09:00→16:00)
[2017-04-19] MEDS ORDERED: DIATRIZOATE MEGLUM/SODIUM 37% 120 ML (GASTROGRAFIN) PO ONE (09:00)
[2017-04-19] MEDS ORDERED: IOHEXOL 350 MG/ML 100 ML (OMNIPAQUE 350) VIAL IV ONE (09:00)
[2017-04-19] MEDS ORDERED: NS 250 ML (IVPB) BAG IV ONE (09:00)
[2017-04-19] MEDS ORDERED: CATHETER FLUSH 10 ML SYR IV PRN (09:00)
--- NOTE | 2017-04-19 10:28 | Diagnostic Imaging Report ---
PROCEDURE: CT abdomen and pelvis with contrast. TECHNIQUE: Multiple contiguous axial images were obtained through the abdomen and pelvis after administration of intravenous contrast. INDICATION: Abdominal pain with possible small bowel obstruction. COMPARISON: 04/15/2017. FINDINGS: A long segment of irregular thickening of the sánchez of the left colon involves its middle and lower one-third and extend into the proximal sigmoid in a similar distribution to the previous exam. The extent of abnormal bowel wall thickening however has improved. Pericolonic inflammation and edema persistent. There is some increase in trace adjacent free fluid along the left colic gutter. There are at least two left colonic diverticula present however again the extent and length of the inflamed segment is greater than would be expected for simple diverticulitis. As discussed on the prior exam, the possibility of underlying malignant stricture could not be excluded. Inflammatory bowel disease or infectious colitis are additional considerations. The aorta, the SMA, the GEORGETTE as well as those vessels primary branches all appeared patent and there were no findings at this exam of the mesenteric venous occlusion. Air within few diverticular pockets present but no convincing evidence for extraluminal gas or transmural perforation found. There is no abscess or drainable fluid collection. The previous features of bowel obstruction as a result of this process are no longer present. There is no extravasation of enteric or vascular contrast media. Mild hepatic steatosis with probable focal fatty infiltration and fatty intensification adjacent to the falciform ligament unchanged. No biliary abnormality. The pancreas, the adrenals and the unobstructed kidneys are stable. Left lower pole renal cortical cyst and nonobstructing upper pole calculi are unchanged. IMPRESSION: Resolution of features of bowel obstruction however there is persistent irregular thickening of the long segment of the left colon with pericolonic edema and slight increase in free fluid along the colic gutter. There are few diverticula. An infectious colitis or inflammatory bowel disease are the leading considerations. The possibility of a malignant stricture could not be confidently excluded and when tolerable correlative colonoscopy is recommended. No abscess or drainable fluid collection and no convincing evidence of free air. Nonobstructing nephrolithiasis. Mild heterogeneous fatty liver. No other substantial abnormality. Dictated by: Dictated on workstation # [id number]
[2017-04-19] MEDS ORDERED: methylPREDNISolone 125 MG (Solu-MEDROL) VIAL IVP NR ×2 (14:30→21:00)
--- NOTE | 2017-04-19 15:32 | Progress Note (SOAP) ---
Subjective Date Seen by Provider: Apr 19, 2017 Time Seen by Provider: 08:25 Subjective/Events-last exam Abdominal pain improved. Scrotal swelling resolved vital signs stable. Patient became nauseous and therefore was unable to tolerate magnesium citrate. Review of Systems General: No Chills, No Night Sweats, No Fatigue, No Malaise HEENT: No Head Aches, No Eye Pain, No Ear Pain, No Dysphasia, No Sinus Congestion, No Post Nasal Drip, No Sore Throat Pulmonary: No Dyspnea, No Cough, No Pleuritic Chest Pain Cardiovascular: No: Chest Pain, Palpitations, Orthopnea, Paroxysmal Noc. Dyspnea, Edema, Lt Headedness Gastrointestinal: No: Nausea, Vomiting, Abdominal Pain, Diarrhea, Constipation , Melena, Hematochezia Genitourinary: No Dysuria, No Frequency, No Incontinence, No Hematuria, No Retention Musculoskeletal: No: other, neck pain, shoulder pain, arm pain, back pain, hand pain, leg pain, foot pain Neurological: No: Weakness, Numbness, Incoordination, Change in speech, Confusion, Seizures, Other Objective Exam Vital Signs Date Time Temp Pulse Resp B/P (MAP) Pulse Ox O2 Delivery O2 Flow Rate FiO2 04/19/17 08:00 98.5 79 18 121/55 (77) 97 Room Air 04/19/17 00:30 97.8 80 17 127/68 (87) 96 Room Air 04/18/17 16:40 98.8 102 18 131/71 (91) 97 Room Air I & O 04/19/17 07:00 Intake Total 4460 ml Output Total 1350 ml Balance 3110 ml Capillary Refill : Less Than 3 Seconds General Appearance: No Apparent Distress Neck: Normal Inspection Cardiovascular: Regular Rate, Rhythm Gastrointestinal: non tender, soft Extremity: Normal Inspection Neurologic/Psychiatric: Alert, Oriented x3 Skin: Warm/Dry Results Lab Laboratory Tests 04/19/17 05:40: Assessment/Plan Assessment/Plan Assess & Plan/Chief Complaint gentleman with long stricture of the descending colon, inflammatory nature. Differential diagnoses would include diverticular stricture and inflammatory bowel disease. Reasonable to continue IV antibiotics and observed. Once discharged, outpatient colonoscopy would be in order. Gentleman with a long stricture of the descending colon possibly due to inflammatory bowel disease. CT scan repeated and confirmed improvement of the small bowel and the patient. We'll reattempt bowel prep and plan on performing colonoscopy Final Diagnosis Stricture of the descending colon Clinical Quality Measures Admission Status Admission Dx gentleman with a stricture along the descending colon. Water soluble contrast study confirms an inflammatory stricture with no evidence of complete obstruction. Reasonable to treat conservatively at this point. DVT/VTE Risk/Contraindication: Risk Factor Score Per Nursin RFS Level Per Nursing on Admit: 3=High ALBIN DRISCOLL MD Apr 19, 2017 3:32 pm
--- NOTE | 2017-04-19 15:35 | Progress Note (SOAP) ---
Subjective Date Seen by Provider: Apr 18, 2017 Time Seen by Provider: 10:35 Subjective/Events-last exam Scrotal edema improved. No abdominal pain. Review of Systems General: No Chills, No Night Sweats, No Fatigue, No Malaise HEENT: No Head Aches, No Eye Pain, No Ear Pain, No Dysphasia, No Sinus Congestion, No Post Nasal Drip, No Sore Throat Pulmonary: No Dyspnea, No Cough, No Pleuritic Chest Pain Cardiovascular: No: Chest Pain, Palpitations, Orthopnea, Paroxysmal Noc. Dyspnea, Edema, Lt Headedness Gastrointestinal: No: Nausea, Vomiting, Abdominal Pain, Diarrhea, Constipation , Melena, Hematochezia Genitourinary: No Dysuria, No Frequency, No Incontinence, No Hematuria, No Retention Musculoskeletal: No: other, neck pain, shoulder pain, arm pain, back pain, hand pain, leg pain, foot pain Neurological: No: Weakness, Numbness, Incoordination, Change in speech, Confusion, Seizures, Other Objective Exam Vital Signs Date Time Temp Pulse Resp B/P (MAP) Pulse Ox O2 Delivery O2 Flow Rate FiO2 04/19/17 08:00 98.5 79 18 121/55 (77) 97 Room Air 04/19/17 00:30 97.8 80 17 127/68 (87) 96 Room Air 04/18/17 16:40 98.8 102 18 131/71 (91) 97 Room Air I & O 04/19/17 07:00 Intake Total 4460 ml Output Total 1350 ml Balance 3110 ml Capillary Refill : Less Than 3 Seconds General Appearance: No Apparent Distress Neck: Normal Inspection Respiratory: Lungs Clear Cardiovascular: Regular Rate, Rhythm Gastrointestinal: non tender, soft Extremity: Normal Inspection Neurologic/Psychiatric: Alert, Oriented x3 Skin: Warm/Dry Results Lab Laboratory Tests 04/19/17 05:40: Assessment/Plan Assessment/Plan Assess & Plan/Chief Complaint gentleman with long stricture of the descending colon, inflammatory nature. Differential diagnoses would include diverticular stricture and inflammatory bowel disease. Reasonable to continue IV antibiotics and observed. Once discharged, outpatient colonoscopy would be in order. Gentleman with a long stricture of the descending colon possibly due to inflammatory bowel disease. CT scan repeated and confirmed improvement of the small bowel and the patient. We'll reattempt bowel prep and plan on performing colonoscopy Final Diagnosis Stricture of the descending colon Clinical Quality Measures Admission Status Admission Dx gentleman with a stricture along the descending colon. Water soluble contrast study confirms an inflammatory stricture with no evidence of complete obstruction. Reasonable to treat conservatively at this point. DVT/VTE Risk/Contraindication: Risk Factor Score Per Nursin RFS Level Per Nursing on Admit: 3=High ALBIN DRISCOLL MD Apr 19, 2017 3:35 pm
[2017-04-19 16:00] VITALS: BP 107/51
[2017-04-19] MEDS ORDERED: MAGNESIUM CITRATE 300 ML BTL PO ONE (16:00)
[2017-04-20] VITALS: BP 113/60
[2017-04-20] MEDS: AA 4.25% W/LYTES IN D5W IV SOL 1,000 ML IV SCH ×3 (02:17→21:16)
[2017-04-20] MEDS: metroNIDAZOLE 500 MG/100 ML IVPB (PRE-MIX) IV SCH ×3 (02:17→17:01)
[2017-04-20] MEDS: METOCLOPRAMIDE INJ 10 MG/2 ML (REGLAN) IVP SCH ×3 (05:25→17:00)
[2017-04-20] MEDS: CIPROFLOXACIN 400 MG/D5W 200 ML (PRE-MIX) IV SCH ×2 (05:25→18:27)
[2017-04-20 08:00] VITALS: BP 116/56
[2017-04-20] MEDS ORDERED: FLEET ENEMA ADULT 1 EA BTL PR NR (08:45)
[2017-04-20] MEDS ORDERED: MAGNESIUM CITRATE 300 ML BTL PO NR ×2 (09:00→13:00)
--- NOTE | 2017-04-20 09:06 | Progress Note (SOAP) ---
Subjective Date Seen by Provider: Apr 20, 2017 Time Seen by Provider: 08:40 Subjective/Events-last exam abdominal pain much improved. Tolerating bowel preparation.reports passing dark stools. Review of Systems General: No Chills, No Night Sweats, No Fatigue, No Malaise HEENT: No Head Aches, No Eye Pain, No Ear Pain, No Dysphasia, No Sinus Congestion, No Post Nasal Drip, No Sore Throat Pulmonary: No Dyspnea, No Cough, No Pleuritic Chest Pain Cardiovascular: No: Chest Pain, Palpitations, Orthopnea, Paroxysmal Noc. Dyspnea, Edema, Lt Headedness Gastrointestinal: No: Nausea, Vomiting, Abdominal Pain, Diarrhea, Constipation , Melena, Hematochezia Genitourinary: No Dysuria, No Frequency, No Incontinence, No Hematuria, No Retention Musculoskeletal: No: other, neck pain, shoulder pain, arm pain, back pain, hand pain, leg pain, foot pain Neurological: No: Weakness, Numbness, Incoordination, Change in speech, Confusion, Seizures, Other Objective Exam Vital Signs Date Time Temp Pulse Resp B/P (MAP) Pulse Ox O2 Delivery O2 Flow Rate FiO2 04/20/17 00:00 97.4 72 16 113/60 (77) 94 Room Air 04/19/17 16:00 98.4 75 18 107/51 (69) 96 Room Air I & O 04/20/17 07:00 Intake Total 940 ml Output Total 750 ml Balance 190 ml Capillary Refill : Less Than 3 Seconds General Appearance: No Apparent Distress Neck: Non Tender Respiratory: Lungs Clear Cardiovascular: Regular Rate, Rhythm Gastrointestinal: non tender, soft Neurologic/Psychiatric: Alert, Oriented x3 Skin: Warm/Dry Assessment/Plan Assessment/Plan Assess & Plan/Chief Complaint gentleman with long stricture of the descending colon, inflammatory nature. Differential diagnoses would include diverticular stricture and inflammatory bowel disease. Reasonable to continue IV antibiotics and observed. Once discharged, outpatient colonoscopy would be in order. Gentleman with a long stricture of the descending colon possibly due to inflammatory bowel disease. CT scan repeated and confirmed improvement of the small bowel and the patient. We'll reattempt bowel prep and plan on performing colonoscopy. patient with a long stricture of the descending colon. Bowel preparation in progress. Colonoscopy may have to be rescheduled for tomorrow Final Diagnosis stricture of the descending colon Clinical Quality Measures Admission Status Admission Dx gentleman with a stricture along the descending colon. Water soluble contrast study confirms an inflammatory stricture with no evidence of complete obstruction. Reasonable to treat conservatively at this point. DVT/VTE Risk/Contraindication: Risk Factor Score Per Nursin RFS Level Per Nursing on Admit: 3=High ALBIN DRISCOLL MD Apr 20, 2017 9:06 am
[2017-04-20] MEDS: morphine INJ 10 MG/ML 1ML (SYR OR VIAL) IV PRN ×3 (13:22→21:16)
[2017-04-20 16:00] VITALS: BP 126/65
[2017-04-21] VITALS: BP 117/61
[2017-04-21] MEDS: METOCLOPRAMIDE INJ 10 MG/2 ML (REGLAN) IVP SCH ×5 (00:06→23:29)
[2017-04-21] MEDS: metroNIDAZOLE 500 MG/100 ML IVPB (PRE-MIX) IV SCH ×3 (02:34→17:30)
[2017-04-21] MEDS: AA 4.25% W/LYTES IN D5W IV SOL 1,000 ML IV SCH ×3 (05:28→20:42)
[2017-04-21] MEDS: CIPROFLOXACIN 400 MG/D5W 200 ML (PRE-MIX) IV SCH ×2 (05:31→18:33)
--- NOTE | 2017-04-21 07:59 | Conscious Sedation/ASA ---
Conscious Sedation Pre-Proced Time Reviewed: 07:59 ASA Class: 2 Airway Mallampati Classification: (ruby appropriate class) I. II. III, IV Lungs Heart ASA score ASA 1: a normal healthy patient ASA 2: a patient with a mild systemic disease (mid diabetes, controlled hypertension, obesity ASA 3: a patient with a severe systemic disease that limits activity (angina , COPD, prior Myocardial infarction) ASA 4: a patient with an incapacitating disease that is a constant threat to life (CHF, renal failure) ASA 5: a moribund patient not expected to survive 24 hrs. (ruptured aneurysm) ASA 6: a declared brain patient whose organs are being harvested. For emergent operations, add the letter E after the classification Grade 1 Sedation Plan: Discussed options with patient/fam Note The patient is an appropriate candidate to undergo the planned procedure, sedation, and anesthesia. The patient immediately re-assessed prior to indication. ALBIN DRISCOLL MD Apr 21, 2017 07:59
[2017-04-21 08:00] VITALS: BP 121/62
[2017-04-21] MEDS ORDERED: LACTATED RINGERS 1,000 ML IV ONE (14:10)
[2017-04-21] MEDS ORDERED: PROPOFOL INJECTION 50 ML IV ONE ×2 (14:15→14:29)
[2017-04-21] MEDS ORDERED: MIDAZOLAM 5 MG/5 ML (VERSED) VIAL ONE (14:15)
[2017-04-21] MEDS ORDERED: LACTATED RINGERS 1,000 ML IV STA (14:36)
--- NOTE | 2017-04-21 15:05 | Endo Procedure Record ---
Endo Procedure Report Date of Procedure Last Colonoscopy: No Apr 21, 2017 Surgeon (s) ALBIN DRISCOLL MD Post Procedure/Op Diagnosis Stricture of the descending colon. Very few sigmoid diverticula Procedure Performed Flexible sigmoidoscopy Description of Procedure Anesthesia Type: Conscious Sedation Specimen(s) collected/removed none Description of the Procedure Indication for the procedure: This gentleman has been admitted with a symptomatic stricture involving the descending colon. He was offered formal colonoscopy to evaluate the etiology of the stricture. Informed consent was obtained after reviewing the procedure in detail. Description of the procedure: He was placed in left lateral decubitus position and his vital signs were monitored. Conscious sedation was achieved using propofol infusion by our [facility]. Examination of the perianal area revealed external hemorrhoids. Digital examination was otherwise unremarkable. Initially, I attempted using the pediatric colonoscope, but, could not negotiate past the stricture. Subsequently, I switched to the gastroscope and was able to advance past the stricture, into the distal transverse colon Findings: 1. Very few, minimally inflamed diverticulae at the distal sigmoid colon 2. Stricture of the descending colon extending from 35 cm to about 45 cm. There was no surface ulceration. Proximal descending colon and the distal transverse colon that were examined appeared to be normal. He tolerated the procedure well and was taken back to the nursing area in a stable condition. Impression: Symptomatic stricture of the descending colon. Requires segmental resection with anastomosis, which would be scheduled. ALBIN DRISCOLL MD Apr 21, 2017 3:05 pm
[2017-04-21] MEDS: morphine INJ 10 MG/ML 1ML (SYR OR VIAL) IV PRN ×4 (15:33→23:31)
[2017-04-21 15:45] VITALS: BP 124/77
[2017-04-21 20:44] VITALS: BP 122/69
[2017-04-22] VITALS: BP 122/64
[2017-04-22] MEDS: metroNIDAZOLE 500 MG/100 ML IVPB (PRE-MIX) IV SCH ×2 (02:07→09:46)
[2017-04-22] MEDS: morphine INJ 10 MG/ML 1ML (SYR OR VIAL) IV PRN ×5 (03:38→20:02)
[2017-04-22] MEDS: METOCLOPRAMIDE INJ 10 MG/2 ML (REGLAN) IVP SCH ×3 (05:40→18:23)
[2017-04-22] MEDS: CIPROFLOXACIN 400 MG/D5W 200 ML (PRE-MIX) IV SCH (05:40)
[2017-04-22] MEDS: AA 4.25% W/LYTES IN D5W IV SOL 1,000 ML IV SCH ×3 (05:40→16:29)
[2017-04-22 08:00] VITALS: BP 111/65
--- NOTE | 2017-04-22 11:54 | Progress Note (SOAP) ---
Subjective Date Seen by Provider: Apr 22, 2017 Time Seen by Provider: 10:10 Subjective/Events-last exam Reports nausea with 1 episode of emesis. Review of Systems General: No Chills, No Night Sweats, No Fatigue, No Malaise HEENT: No Head Aches, No Eye Pain, No Ear Pain, No Dysphasia, No Sinus Congestion, No Post Nasal Drip, No Sore Throat Pulmonary: No Dyspnea, No Cough, No Pleuritic Chest Pain Cardiovascular: No: Chest Pain, Palpitations, Orthopnea, Paroxysmal Noc. Dyspnea, Edema, Lt Headedness Gastrointestinal: Nausea Genitourinary: No Dysuria, No Frequency, No Incontinence, No Hematuria, No Retention Musculoskeletal: No: other, neck pain, shoulder pain, arm pain, back pain, hand pain, leg pain, foot pain Neurological: No: Weakness, Numbness, Incoordination, Change in speech, Confusion, Seizures, Other Objective Exam Vital Signs Date Time Temp Pulse Resp B/P (MAP) Pulse Ox O2 Delivery O2 Flow Rate FiO2 04/22/17 08:00 98.4 73 18 111/65 (80) 96 Room Air 04/22/17 00:00 98.4 84 18 122/64 (83) 95 Room Air 04/21/17 20:44 98.3 86 15 122/69 (86) 95 Room Air 04/21/17 15:45 97.4 79 18 124/77 (93) 97 Room Air I & O 04/22/17 07:00 Intake Total 4238 ml Output Total 1025 ml Balance 3213 ml Capillary Refill : Less Than 3 Seconds General Appearance: Anxious Neck: Normal Inspection Gastrointestinal: non tender, soft Extremity: Normal Inspection Neurologic/Psychiatric: Alert, Oriented x3 Skin: Warm/Dry Assessment/Plan Assessment/Plan Assess & Plan/Chief Complaint gentleman with long stricture of the descending colon, inflammatory nature. Differential diagnoses would include diverticular stricture and inflammatory bowel disease. Reasonable to continue IV antibiotics and observed. Once discharged, outpatient colonoscopy would be in order. Gentleman with a long stricture of the descending colon possibly due to inflammatory bowel disease. CT scan repeated and confirmed improvement of the small bowel and the patient. We'll reattempt bowel prep and plan on performing colonoscopy. patient with a long stricture of the descending colon. Bowel preparation in progress. Colonoscopy may have to be rescheduled for tomorrow Gentleman with an inflammatory stricture of the descending colon requiring resection. Operative details of minimally invasive approach with the robotic assistance and intracorporeal anastomosis discussed. Expected recovery time, postoperative complications of intra-abdominal abscess anastomotic leak requiring temporary loop ileostomy etc. discussed thoroughly. Seems to understand Final Diagnosis Stricture of the descending colon Clinical Quality Measures Admission Status Admission Dx gentleman with a stricture along the descending colon. Water soluble contrast study confirms an inflammatory stricture with no evidence of complete obstruction. Reasonable to treat conservatively at this point. DVT/VTE Risk/Contraindication: Risk Factor Score Per Nursin RFS Level Per Nursing on Admit: 3=High ALBIN DRISCOLL MD Apr 22, 2017 11:54
[2017-04-22] MEDS: PANTOPRAZOLE 40 MG/10 ML (PROTONIX) VIAL IV SCH ×2 (14:14→21:18)
[2017-04-22 15:30] VITALS: BP 121/62
[2017-04-23] MEDS: METOCLOPRAMIDE INJ 10 MG/2 ML (REGLAN) IVP SCH ×5 (00:01→23:55)
[2017-04-23 00:40] VITALS: BP 106/64
[2017-04-23] MEDS: AA 4.25% W/LYTES IN D5W IV SOL 1,000 ML IV SCH ×2 (01:42→15:06)
[2017-04-23] MEDS: morphine INJ 10 MG/ML 1ML (SYR OR VIAL) IV PRN (01:45)
[2017-04-23] MEDS ORDERED: ROCURONIUM 10 MG/ML 5 ML SYRINGE IV ONE ×2 (06:57→08:53)
[2017-04-23] MEDS ORDERED: ONDANSETRON 4 MG/2 ML (SDV) Z0FRAN ONE (06:57)
[2017-04-23] MEDS ORDERED: proPOfol 200 MG/20 ML (DIPRIVAN) VIAL IV ONE (06:57)
[2017-04-23] MEDS ORDERED: fentaNYL INJECTION 100 MCG/2 ML AMP ONE (06:57)
[2017-04-23] MEDS ORDERED: DEXAMETHASONE 10 MG/ML (DECADRON) 1 ML VIAL ONE (06:57)
[2017-04-23] MEDS ORDERED: MIDAZOLAM 2 MG/2 ML (VERSED) VIAL ONE (06:57)
[2017-04-23] MEDS ORDERED: LIDOCAINE PF 2% 5 ML (XYLOCAINE) VIAL ONE (06:57)
[2017-04-23] MEDS ORDERED: BUP/EPI 0.5% 1:200,000 (SENSORCAINE) 30 ML VIAL ONE ×2 (07:07→12:19)
[2017-04-23] MEDS ORDERED: metroNIDAZOLE 500MG/100ML IVPB 100 ML IV ONE (07:15)
[2017-04-23] MEDS ORDERED: ceFAZolin INJECTION 1,000 MG in NS (IVPB) 100 ML IV ONE (07:15)
[2017-04-23] MEDS ORDERED: HEParin (CENTRAL IV FLUSH) 500 UNIT/5 ML SYR ONE (07:28)
[2017-04-23] MEDS: LACTATED RINGERS 1,000 ML IV SCH ×5 (07:33→17:03)
[2017-04-23] MEDS ORDERED: morphine INJ 10 MG/ML 1ML (SYR OR VIAL) ONE ×2 (07:44→12:30)
[2017-04-23 08:00] VITALS: BP 118/62
[2017-04-23] MEDS: PANTOPRAZOLE 40 MG/10 ML (PROTONIX) VIAL IV SCH ×2 (08:04→20:54)
[2017-04-23] MEDS ORDERED: meTOprolol 5 MG/5 ML (LOPRESSOR) VIAL ONE ×2 (10:35→12:48)
[2017-04-23] MEDS ORDERED: ceFAZolin 1,000 MG (ANCEF) VIAL ONE (11:09)
[2017-04-23] MEDS ORDERED: LACTATED RINGERS 1,000 ML IV ONE ×2 (11:10→12:04)
[2017-04-23] MEDS ORDERED: SEVOFLURANE (ULTANE) 15 ML INHAL SOLN ONE ×10 (11:19→13:03)
[2017-04-23] MEDS ORDERED: GLYCOPYRROLATE 0.2 MG/ML (ROBINUL) 2 ML VIAL ONE (12:11)
[2017-04-23] MEDS ORDERED: NEOSTIGMINE 1 MG/ML 5 ML SYRINGE ONE (12:11)
[2017-04-23] MEDS ORDERED: LACTATED RINGERS 1,000 ML IV PRN (12:41)
--- NOTE | 2017-04-23 12:41 | Operative Report ---
Operative Report Date of Procedure/Surgery Apr 23, 2017 Surgeon (s) ALBIN DRISCOLL MD Roads Supervisor (s): N/A Post-Operative Diagnosis Stricture of the descending colon. Enlarged appendix Procedure Performed 1. Central venous catheter placement 2. Robotic, converted to left hemicolectomy and primary anastomosis 3. Mobilization of splenic and hepatic flexure 4. Appendectomy Description of Procedure Anesthesia Type: General Estimated blood loss (mL): 200 mL Specimen(s) collected/removed Left colon and appendix Description of the Procedure Indication for the procedure: This gentleman has been admitted with a symptomatic stricture involving the descending colon. Flexible sigmoidoscopy confirmed a very narrow lumen and therefore resection was felt to be appropriate. He was offered resection using minimally invasive technique with the robotic assistance and primary anastomosis. The possibility of requiring conversion to laparotomy and the potential for a temporary loop ileostomy where discussed with him. Placing a central line to monitor urine output and facilitate administering total parenteral nutrition was also discussed. Informed consent was obtained after reviewing the operative details and complications of wound infection, anastomotic leak requiring further surgery, temporary stoma formation and cardiorespiratory dysfunction. Description of the procedure: He was placed supine on the operating table and general anesthesia induced using an endotracheal tube. A gram of Ancef and 500 mg of Flagyl were administered intravenously as prophylaxis against infection. Sequential compression devices were placed around his legs, to minimize the risk of venous thrombosis. Another dose of Ancef was administered 4 hours later. A Garsia catheter was placed to monitor urine output during the perioperative period. His legs were placed in stirrups to achieve exposure to the rectum for creating the anastomosis. All the pressure areas were added and protected. 1. Central venous catheter placement: Left infraclavicular fossa was prepared and draped in the usual sterile manner. Subclavian vein was easily accessed and a floppy guidewire introduced into the heart. Subcutaneous tract was gently dilated using a silastic sheath and a 20 cm long, 7-1/2 [place], triple- lumen central venous catheter advanced using Seldinger technique. All the channels were aspirated and flushed with heparinized saline. The catheter was then secured using a silk suture and a dressing applied. 2. Robotic-assisted/converted to open left hemicolectomy with EEA anastomosis/ mobilization of splenic and hepatic flexures/incidental appendectomy After adequate antiseptic preparation, a 3 cm transverse incision was made to the right of the umbilicus and abdomen entered safely. A gel point device was placed and pneumoperitoneum created using carbon dioxide insufflation, to an intra-abdominal pressure of 15 mmHg. The trocar was placed through the gel point and laparoscopy performed using the high definition, 3-dimensional laparoscope, associated with da Teresa system. Small bowel was slightly dilated with a phlegmon along the descending colon. Under direct view, I placed a 12 mm trocar over the right lower quadrant to facilitate placing the robotic stapler followed by two 8 mm trocars over the epigastric region and the left upper quadrant. An additional 8 mm trocar was placed over the right upper quadrant, to facilitate using an assistance grasper. Robotic system was then docked in place. Prior to docking, the patient was placed in Trendelenburg position, with the left side tilted up. Sigmoid colon was held up and I began the dissection in a medial to lateral fashion using the vessel sealing device. Left ureter was identified and kept out of harm's way. Dissection was continued cephalad my encountering thick and inflamed mesocolon. Distally, dissection was continued down to the proximal rectum, which was isolated. It was then transected using robotic, 3.5 mm stapler. I, then, then the attention to the proximal descending colon. Despite multiple attempts to make progress, due to the thick nature of the colon, further progress could not be achieved. Therefore, I elected to convert to conventional laparotomy. A midline incision was made in the left colon mobilized around the splenic flexure to the mid transverse colon. Vascular pedicles were controlled using Harmonic scalpel. It became clear that the hepatic flexure and the right colon had to be mobilized to achieve a tension-free anastomosis. It was accomplished using Harmonic scalpel. At this point, an enlarged and elongated appendix came into view. It became apparent that appendectomy would be reasonable. This was achieved using an End[employer] NORAH vascular stapler for the base of the appendix and Harmonic scalpel to control the mesoappendix. Middle colic artery was preserved and the proximal descending colon brought into the was, in preparation for anastomosis. A 29 mm EEA anastomosis was created after securing the abdominal around the proximal bowel using a 2-0 Prolene pursestring suture. We obtained 2 intact donuts. The integrity of the anastomosis was confirmed by filling up the pelvis with sterile saline and air insufflation using a rigid proctoscope. There was no leak. Abdomen was then thoroughly irrigated with 3 L of warm healing. Fascia was closed using #2 Prolene and subcutaneous tissue with 2-0 Vicryl. Skin was closed using blanca With regard to the incision over the right lower quadrant, peritoneum was closed using 3-0 PDS in the fascia with #2 Prolene. Subcutaneous tissue was approximated with 2-0 Vicryl and skin with blanca. The fascia over the 12 mm incisions was closed using #1 Vicryl. Skin incisions were closed with blanca. 0.5 percent Marcaine with epinephrine was infiltrated along the incisions, both preemptively and at the conclusion of the operation. He tolerated the procedure well and was taken to the recovery room in a stable condition. Findings of the Procedure See op report Allergies and Home Medications Allergies Coded Allergies: No Known Drug Allergies (Unverified , 04/15/17) Home Medications No Active Prescriptions or Reported Meds Patient Home Medication List Home Medication List Reviewed: Yes ALBIN DRISCOLL MD Apr 23, 2017 12:41 pm
[2017-04-23] MEDS ORDERED: ONDANSETRON 4 MG/2 ML (SDV) Z0FRAN IV PRN (12:45)
[2017-04-23] MEDS ORDERED: NALOXONE 0.4 MG/ML 1 ML (NARCAN) VIAL IV PRN (12:45)
[2017-04-23] MEDS ORDERED: diphenhydrAMINE 50 MG/ML INJ (BENADRYL) IV PRN (12:45)
[2017-04-23] MEDS ORDERED: HYDROmorphone (DILAUDID) 2 MG/ML VIAL ONE (12:56)
[2017-04-23] MEDS ORDERED: ONDANSETRON 4 MG/2 ML (SDV) Z0FRAN IVP PRN (13:00)
[2017-04-23] MEDS ORDERED: morphine INJ 10 MG/ML 1ML (SYR OR VIAL) IVP PRN (13:00)
[2017-04-23] MEDS: HYDROmorphone (DILAUDID) 2 MG/ML VIAL IVP PRN ×4 (13:00→13:30)
[2017-04-23] MEDS ORDERED: MEPERIDINE (DEMEROL) INJ 50 MG/ML ONE (13:01)
[2017-04-23] MEDS: MEPERIDINE (DEMEROL) INJ 50 MG/ML IVP PRN ×2 (13:05→13:15)
[2017-04-23] MEDS ORDERED: metroNIDAZOLE 500MG/100ML IVPB 100 ML IV SCH (13:35)
--- NOTE | 2017-04-23 13:51 | Diagnostic Imaging Report ---
INDICATION: Followup central line placement. FINDINGS: Left central line is present. Tip is at the cavoatrial junction overlying the superior vena cava. The lungs are well aerated. There is no pneumothorax or pleural effusion. NG tube is present tip extending into the stomach. IMPRESSION: Satisfactory left central line position and NG tube without complications noted. Dictated by: Dictated on workstation # [id number]
[2017-04-23 14:10] VITALS: BP 137/72
--- NOTE | 2017-04-23 14:32 | Anesthesia-General Post-Op ---
General Patient Condition Mental Status/LOC: Same as Preop Cardiovascular: Satisfactory Nausea/Vomiting: Absent Respiratory: Satisfactory Pain: Controlled Complications: Absent Post Op Complications Complications None Follow Up Care/Instructions Patient Instructions None needed. Anesthesia/Patient Condition Patient Condition Patient is doing well, no complaints, stable vital signs, no apparent adverse anesthesia problems. No complications reported per nursing. MYRA CANAS CRNA Apr 23, 2017 14:32
[2017-04-23] MEDS: morphine PCA 30 MG/30 ML VIAL IV PRN ×2 (15:00→23:55)
[2017-04-23 15:55] VITALS: BP 136/77
[2017-04-23] MEDS: NS IV 1000 ML 1,000 ML IV SCH (16:02)
[2017-04-23] MEDS: metroNIDAZOLE 500MG/100ML IVPB 100 ML IV SCH (17:00)
[2017-04-23 19:02] VITALS: BP 146/90
[2017-04-23] MEDS: ceFAZolin INJECTION 1,000 MG in NS (IVPB) 100 ML IV SCH (20:18)
[2017-04-24] VITALS: BP 137/79
[2017-04-24] MEDS: LACTATED RINGERS 1,000 ML IV SCH ×4 (00:14→19:15)
[2017-04-24] MEDS: metroNIDAZOLE 500MG/100ML IVPB 100 ML IV SCH ×2 (02:20→10:05)
[2017-04-24] MEDS: ceFAZolin INJECTION 1,000 MG in NS (IVPB) 100 ML IV SCH ×2 (04:39→13:45)
[2017-04-24 04:49] VITALS: BP 132/77
[2017-04-24 05:23] LABS: BASOPHILS % (AUTO) 0 % (0-10); EOSINOPHILS # (AUTO) 0.1 10^3/uL (0.0-0.3); EOSINOPHILS % (AUTO) 0 % (0-10); HEMATOCRIT 35 % (40-54); HEMOGLOBIN 11.8 G/DL (13.3-17.7); LYMPHOCYTES % (AUTO) 7 % (12-44); MEAN CORPUSCULAR HEMOGLOBIN 31 PG (25-34); MEAN CORPUSCULAR HGB CONC 34 G/DL (32-36); MEAN CORPUSCULAR VOLUME 93 FL (80-99); MEAN PLATELET VOLUME 10.2 FL (7.4-10.4); MONOCYTES # (AUTO) 1.8 X 10^3 (0.0-1.0); MONOCYTES % (AUTO) 12 % (0-12); NEUTROPHILS # (AUTO) 11.6 X 10^3 (1.8-7.8); NEUTROPHILS % (AUTO) 80 % (42-75); PLATELET COUNT 348 10^3/uL (130-400); RED BLOOD COUNT 3.79 10^6/uL (4.35-5.85); RED CELL DISTRIBUTION WIDTH 12.5 % (10.0-14.5); WHITE BLOOD COUNT 14.5 10^3/uL (4.3-11.0)
[2017-04-24 05:57] LABS: BUN/CREATININE RATIO 13; CALCIUM 8.3 MG/DL (8.5-10.1); CARBON DIOXIDE 29 MMOL/L (21-32); CHLORIDE 100 MMOL/L (98-107); GFR ESTIMATED > 60; GLUCOSE 111 MG/DL (70-105); MAGNESIUM 1.7 MG/DL (1.8-2.4); PHOSPHORUS 3.7 MG/DL (2.3-4.7); POTASSIUM 4.4 MMOL/L (3.6-5.0); SODIUM 135 MMOL/L (135-145); TRIGLYCERIDES 89 MG/DL (<150)
[2017-04-24] MEDS: METOCLOPRAMIDE INJ 10 MG/2 ML (REGLAN) IVP SCH ×3 (06:34→17:48)
[2017-04-24 08:00] VITALS: BP 136/81
[2017-04-24] MEDS: CATHETER FLUSH 10 ML SYR IV PRN (08:22)
[2017-04-24] MEDS: PANTOPRAZOLE 40 MG/10 ML (PROTONIX) VIAL IV SCH ×2 (08:22→20:00)
[2017-04-24] MEDS ORDERED: TPN IV SCH (09:15)
[2017-04-24] MEDS: MAGNESIUM 1 GM/100 ML IVPB 100 ML IV SCH ×2 (10:05→10:06)
[2017-04-24 12:00] VITALS: BP 143/82
[2017-04-24] MEDS ORDERED: KETOROLAC 30 MG/ML VIAL IVP PRN (12:30)
--- NOTE | 2017-04-24 12:50 | Progress Note-Standard ---
Standard Progress Note Progress Notes/Assess & Plan Date Seen by Provider: Apr 24, 2017 Time Seen by Provider: 12:10 Progress/Assessment & Plan Reports inadequate pain control. . Encouraged him to move around. Toradol will be used to optimize his pain control. Minimal output from the nasogastric tube, which could be removed later today. Good urine output. Electrolytes normal. Final Diagnosis Diverticular stricture with pericolic abscess ALBIN DRISCOLL MD Apr 24, 2017 12:50 pm
[2017-04-24] MEDS: ENOXAPARIN 40 MG/0.4 ML (LOVENOX) SYR SC SCH (13:43)
[2017-04-24 15:50] VITALS: BP 129/69
[2017-04-24] MEDS: NS IV 1000 ML 1,000 ML IV SCH (16:49)
[2017-04-24] MEDS ORDERED: SODIUM CHLORIDE 14.6% INJ 70 MEQ, POTASSIUM ACETATE INJ 40 MEQ, POTASSIUM PHOSPHATE INJ... IV SCH ×10 (17:00)
[2017-04-24 19:23] VITALS: BP 151/72
[2017-04-25] VITALS: BP 171/78
[2017-04-25] MEDS: METOCLOPRAMIDE INJ 10 MG/2 ML (REGLAN) IVP SCH ×5 (00:05→23:34)
[2017-04-25] MEDS: LACTATED RINGERS 1,000 ML IV SCH ×2 (03:24→16:14)
[2017-04-25 04:00] VITALS: BP 144/80
[2017-04-25] MEDS: morphine PCA 30 MG/30 ML VIAL IV PRN (04:03)
[2017-04-25 08:00] VITALS: BP 164/78
[2017-04-25] MEDS: PANTOPRAZOLE 40 MG/10 ML (PROTONIX) VIAL IV SCH ×2 (08:46→19:36)
[2017-04-25] MEDS: CATHETER FLUSH 10 ML SYR IV PRN (08:46)
[2017-04-25] MEDS ORDERED: ACETAMINOPHEN 325 MG TABLET/CAPLET (TYLENOL) PO PRN (11:45)
[2017-04-25] MEDS: ENOXAPARIN 40 MG/0.4 ML (LOVENOX) SYR SC SCH (11:55)
[2017-04-25 12:00] VITALS: BP 141/76
--- NOTE | 2017-04-25 12:41 | Progress Note-Standard ---
Standard Progress Note Progress Notes/Assess & Plan Date Seen by Provider: Apr 25, 2017 Time Seen by Provider: 11:35 Progress/Assessment & Plan Reports inadequate pain control. . Encouraged him to move around. Toradol will be used to optimize his pain control. Minimal output from the nasogastric tube, which could be removed later today. Good urine output. Electrolytes normal. Pain control better. NG tube removed. Incisions dry. temperature 100.2. Continue TPN Final Diagnosis diverticular stricture of descending colon ALBIN DRISCOLL MD Apr 25, 2017 12:41 pm
[2017-04-25 15:54] VITALS: BP 167/83
[2017-04-25] MEDS: NS IV 1000 ML 1,000 ML IV SCH (16:15)
[2017-04-25] MEDS ORDERED: SODIUM CHLORIDE 14.6% INJ 70 MEQ, POTASSIUM ACETATE INJ 40 MEQ, POTASSIUM PHOSPHATE INJ... IV SCH ×10 (17:00)
[2017-04-25] MEDS ORDERED: KETOROLAC 30 MG/ML VIAL IVP PRN (18:30)
[2017-04-25 19:30] VITALS: BP 163/78
[2017-04-26 00:04] VITALS: BP 156/84
[2017-04-26] MEDS: morphine PCA 30 MG/30 ML VIAL IV PRN (02:30)
[2017-04-26 04:43] VITALS: BP 147/82
[2017-04-26] MEDS: METOCLOPRAMIDE INJ 10 MG/2 ML (REGLAN) IVP SCH ×4 (05:17→23:51)
[2017-04-26 08:00] VITALS: BP 140/85
[2017-04-26] MEDS: PANTOPRAZOLE 40 MG/10 ML (PROTONIX) VIAL IV SCH (09:10)
[2017-04-26 09:15] LABS: ALANINE AMINOTRANSFERASE 11 U/L (0-55); ALBUMIN 2.6 GM/DL (3.2-4.5); ALKALINE PHOSPHATASE 36 U/L (40-136); BILIRUBIN,TOTAL 0.4 MG/DL (0.1-1.0); BUN/CREATININE RATIO 12; CARBON DIOXIDE 25 MMOL/L (21-32); CHLORIDE 102 MMOL/L (98-107); CREATININE SERUM 0.58 MG/DL (0.60-1.30); GFR ESTIMATED > 60; GLUCOSE 122 MG/DL (70-105); MAGNESIUM 1.6 MG/DL (1.8-2.4); PHOSPHORUS 2.6 MG/DL (2.3-4.7); POTASSIUM 3.4 MMOL/L (3.6-5.0); SODIUM 135 MMOL/L (135-145); TOTAL PROTEIN 5.6 GM/DL (6.4-8.2)
[2017-04-26] MEDS: POTASSIUM CL 10MEQ/50ML IVPB 50 ML IV SCH ×4 (10:08→13:17)
[2017-04-26] MEDS: MAGNESIUM 1 GM/100 ML IVPB 100 ML IV SCH ×3 (10:08→13:23)
[2017-04-26] MEDS: LACTATED RINGERS 1,000 ML IV SCH (10:30)
[2017-04-26 12:00] VITALS: BP 143/82
[2017-04-26] MEDS: HYDROcodone/APAP 5 MG/325 MG (LORTAB) TAB PO PRN ×2 (12:20→20:39)
[2017-04-26] MEDS: ENOXAPARIN 40 MG/0.4 ML (LOVENOX) SYR SC SCH (12:22)
--- NOTE | 2017-04-26 13:52 | Progress Note-Standard ---
Standard Progress Note Progress Notes/Assess & Plan Date Seen by Provider: Apr 26, 2017 Time Seen by Provider: 11:50 Progress/Assessment & Plan Reports inadequate pain control. . Encouraged him to move around. Toradol will be used to optimize his pain control. Minimal output from the nasogastric tube, which could be removed later today. Good urine output. Electrolytes normal. Pain control better. NG tube removed. Incisions dry. temperature 100.2. Continue TPN pain control better. Incisions dry. Passed bloody stools. We'll continue TPN for now Final Diagnosis diverticular stricture of the descending colon ALBIN DRISCOLL MD Apr 26, 2017 13:52
[2017-04-26 16:00] VITALS: BP 142/79
[2017-04-26] MEDS: NS IV 1000 ML 1,000 ML IV SCH (16:51)
[2017-04-26] MEDS: SODIUM CHLORIDE IV SCH ×11 (17:04)
[2017-04-26] MEDS: [UNRECOGNIZED DRUG - OTHER] IV SCH ×11 (17:04)
[2017-04-26] MEDS: SODIUM ACETATE IV SCH ×11 (17:04)
[2017-04-26] MEDS: PANTOPRAZOLE 40 MG (PROTONIX) TAB PO SCH (20:35)
[2017-04-27 00:15] VITALS: BP 139/77
[2017-04-27] MEDS: METOCLOPRAMIDE INJ 10 MG/2 ML (REGLAN) IVP SCH ×2 (05:06→12:24)
[2017-04-27 06:06] LABS: BUN/CREATININE RATIO 16; CALCIUM 8.2 MG/DL (8.5-10.1); CARBON DIOXIDE 25 MMOL/L (21-32); CHLORIDE 106 MMOL/L (98-107); CREATININE SERUM 0.58 MG/DL (0.60-1.30); GFR ESTIMATED > 60; GLUCOSE 89 MG/DL (70-105); MAGNESIUM 1.9 MG/DL (1.8-2.4); PHOSPHORUS 3.8 MG/DL (2.3-4.7); POTASSIUM 3.7 MMOL/L (3.6-5.0); SODIUM 138 MMOL/L (135-145)
[2017-04-27 08:00] VITALS: BP 149/83
[2017-04-27] MEDS: PANTOPRAZOLE 40 MG (PROTONIX) TAB PO SCH (08:45)
[2017-04-27] MEDS: ENOXAPARIN 40 MG/0.4 ML (LOVENOX) SYR SC SCH (12:24)
[2017-04-27 16:00] VITALS: BP 136/77
[2017-04-27] MEDS: SODIUM ACETATE IV SCH ×11 (16:55)
[2017-04-27] MEDS: [UNRECOGNIZED DRUG - OTHER] IV SCH ×11 (16:55)
[2017-04-27] MEDS: SODIUM CHLORIDE IV SCH ×11 (16:55)
--- NOTE | 2017-04-27 17:10 | Progress Note-Standard ---
Standard Progress Note Progress Notes/Assess & Plan Date Seen by Provider: Apr 27, 2017 Time Seen by Provider: 16:05 Progress/Assessment & Plan Reports inadequate pain control. . Encouraged him to move around. Toradol will be used to optimize his pain control. Minimal output from the nasogastric tube, which could be removed later today. Good urine output. Electrolytes normal. Pain control better. NG tube removed. Incisions dry. temperature 100.2. Continue TPN pain control better. Incisions dry. Passed bloody stools. We'll continue TPN for now passing normal stools. No abdominal distention. Scrotal edema. No tenderness of the testicles. Appetite improving. TPN could be tapered off in the morning and stopped tomorrow evening. Possible discharge on morning Final Diagnosis diverticular stricture of descending colon ALBIN DRISCOLL MD Apr 27, 2017 5:10 pm
[2017-04-27] MEDS: HYDROcodone/APAP 5 MG/325 MG (LORTAB) TAB PO PRN (20:32)
[2017-04-28 00:50] VITALS: BP 133/77
[2017-04-28] MEDS: HYDROcodone/APAP 5 MG/325 MG (LORTAB) TAB PO PRN ×2 (07:37→20:46)
[2017-04-28 08:00] VITALS: BP 134/75
[2017-04-28] MEDS ORDERED: ACHD5005 PO (09:46)
--- NOTE | 2017-04-28 09:48 | Discharge Inst-Simple/Standard ---
Discharge Inst-Standard Discharge Medications New, Converted or Re-Newed RX: RX on Chart Patient Instructions/Follow Up Plan of Care/Instructions/FU: Please remove central line prior to discharge. F/U next , the . Incentive spirometry to be continued at home Activity as Tolerated: No Goal: No lifting over 10 lb Discharge Diet: No Restrictions ALBIN DRISCOLL MD Apr 28, 2017 9:48 am
--- NOTE | 2017-04-28 10:17 | Progress Note-Standard ---
Standard Progress Note Progress Notes/Assess & Plan Date Seen by Provider: Apr 28, 2017 Time Seen by Provider: 09:15 Progress/Assessment & Plan Reports inadequate pain control. . Encouraged him to move around. Toradol will be used to optimize his pain control. Minimal output from the nasogastric tube, which could be removed later today. Good urine output. Electrolytes normal. Pain control better. NG tube removed. Incisions dry. temperature 100.2. Continue TPN pain control better. Incisions dry. Passed bloody stools. We'll continue TPN for now passing normal stools. No abdominal distention. Scrotal edema. No tenderness of the testicles. Appetite improving. TPN could be tapered off in the morning and stopped tomorrow evening. Possible discharge on morning. improving. TPN will be stopped today; discharge tomorrow Final Diagnosis diverticular stricture of the descending colon with pericolic abscess ALBIN DRISCOLL MD Apr 28, 2017 10:17 am
--- NOTE | 2017-04-28 10:20 | Discharge Summary ---
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 Further workup included a contrast enema, confirming a stricture of the descending colon with a patent lumen. Endoscopic evaluation was negative for any neoplasm. Subsequently, he underwent left hemicolectomy with primary anastomosis. Final histology has been confirmed to be diverticular stricture with pericolic abscess. She has since made a satisfactory recovery. At the time of discharge , he is ambulating independently and tolerating a soft diet. His bowel function has resumed. He'll be followed up in my office in a week. Discharge Summary Procedures robotic assisted technique converted to open left hemicolectomy. Incidental appendectomy due to the enlarged nature of the appendix Discharge Physical Examination Allergies: Coded Allergies: No Known Drug Allergies (Unverified , 04/15/17) Vitals & I&Os Vital Signs Date Time Temp Pulse Resp B/P (MAP) Pulse Ox O2 Delivery O2 Flow Rate FiO2 04/28/17 08:00 98.2 85 18 134/75 (94) 96 Room Air 04/24/17 15:50 3.50 Hospital Course Labs (last 24 hrs) Laboratory Tests 04/15/17 15:45: White Blood Count 10.8, Red Blood Count 4.30L, Hemoglobin 13.7, Hematocrit 39L, Mean Corpuscular Volume 91, Mean Corpuscular Hemoglobin 32, Mean Corpuscular Hemoglobin Concent 35, Red Cell Distribution Width 11.9, Platelet Count 349, Mean Platelet Volume 10.0, Neutrophils (%) (Auto) 79H, Lymphocytes (%) (Auto) 11L, Monocytes (%) (Auto) 10, Eosinophils (%) (Auto) 0, Basophils (%) (Auto) 0, Neutrophils # (Auto) 8.5H, Lymphocytes # (Auto) 1.2, Monocytes # (Auto) 1.1H, Eosinophils # (Auto) 0.0, Basophils # (Auto) 0.0, Erythrocyte Sedimentation Rate 44H, Sodium Level 134L, Potassium Level 4.0, Chloride Level 98, Carbon Dioxide Level 27, Anion Gap 9, Blood Urea Nitrogen 8, Creatinine 0.82, Estimat Glomerular Filtration Rate > 60, BUN/Creatinine Ratio 10, Glucose Level 89, Calcium Level 9.3, Total Bilirubin 1.1H, Aspartate Amino Transf (AST/SGOT) 36H, Alanine Aminotransferase (ALT/SGPT) 45, Alkaline Phosphatase 66, C-Reactive Protein High Sensitivity 13.87H, Total Protein 8.4H, Albumin 3.8, Lipase 10, Anti-Neutrophil Cytoplasmic Ab <1:20, ANCA Pattern Not Indicated, Saccharomyces cerevisiae IgG Ab 25.4H, Saccharomyces cerevisiae IgA Ab 33.5H 04/15/17 16:00: Urine Color YELLOW, Urine Clarity CLEAR, Urine pH 6, Urine Specific [place] 1.015L, Urine Protein 1+H, Urine Glucose (UA) NEGATIVE, Urine Ketones 4+H, Urine Nitrite NEGATIVE, Urine Bilirubin NEGATIVE, Urine Urobilinogen 1, Urine Leukocyte Esterase NEGATIVE, Urine RBC (Auto) NEGATIVE, Urine RBC NONE, Urine WBC NONE, Urine Crystals NONE, Urine Bacteria NONE, Urine Casts NONE, Urine Mucus SMALLH, Urine Culture Indicated NO 04/16/17 06:24: White Blood Count 10.4, Red Blood Count 3.88L, Hemoglobin 12.2L, Hematocrit 35L , Mean Corpuscular Volume 91, Mean Corpuscular Hemoglobin 31, Mean Corpuscular Hemoglobin Concent 35, Red Cell Distribution Width 12.1, Platelet Count 313, Mean Platelet Volume 10.3, Neutrophils (%) (Auto) 72, Lymphocytes (%) (Auto) 15 , Monocytes (%) (Auto) 12, Eosinophils (%) (Auto) 1, Basophils (%) (Auto) 0, Neutrophils # (Auto) 7.5, Lymphocytes # (Auto) 1.6, Monocytes # (Auto) 1.3H, Eosinophils # (Auto) 0.1, Basophils # (Auto) 0.0, Sodium Level 135, Potassium Level 4.4, Chloride Level 102, Carbon Dioxide Level 25, Anion Gap 8, Blood Urea Nitrogen 6L, Creatinine 0.75, Estimat Glomerular Filtration Rate > 60, BUN/ Creatinine Ratio 8, Glucose Level 95, Calcium Level 8.8, Total Bilirubin 0.9, Aspartate Amino Transf (AST/SGOT) 21, Alanine Aminotransferase (ALT/SGPT) 34, Alkaline Phosphatase 61, Total Protein 7.1, Albumin 3.4 04/18/17 05:40: White Blood Count 7.3, Red Blood Count 3.74L, Hemoglobin 11.8L, Hematocrit 35L, Mean Corpuscular Volume 92, Mean Corpuscular Hemoglobin 32, Mean Corpuscular Hemoglobin Concent 34, Red Cell Distribution Width 12.1, Platelet Count 320, Mean Platelet Volume 10.4, Neutrophils (%) (Auto) 68, Lymphocytes (%) (Auto) 20 , Monocytes (%) (Auto) 11, Eosinophils (%) (Auto) 2, Basophils (%) (Auto) 0, Neutrophils # (Auto) 5.0, Lymphocytes # (Auto) 1.4, Monocytes # (Auto) 0.8, Eosinophils # (Auto) 0.2, Basophils # (Auto) 0.0, Erythrocyte Sedimentation Rate 49H, Sodium Level 137, Potassium Level 4.0, Chloride Level 103, Carbon Dioxide Level 28, Anion Gap 6, Blood Urea Nitrogen 11, Creatinine 0.76, Estimat Glomerular Filtration Rate > 60, BUN/Creatinine Ratio 14, Glucose Level 110H, Calcium Level 8.9, Total Bilirubin 0.3, Aspartate Amino Transf (AST/SGOT) 17, Alanine Aminotransferase (ALT/SGPT) 21, Alkaline Phosphatase 49, Total Protein 6.9, Albumin 3.2 04/19/17 05:40: 04/24/17 05:00: White Blood Count 14.5H, Red Blood Count 3.79L, Hemoglobin 11.8L, Hematocrit 35L , Mean Corpuscular Volume 93, Mean Corpuscular Hemoglobin 31, Mean Corpuscular Hemoglobin Concent 34, Red Cell Distribution Width 12.5, Platelet Count 348, Mean Platelet Volume 10.2, Neutrophils (%) (Auto) 80H, Lymphocytes (%) (Auto) 7L , Monocytes (%) (Auto) 12, Eosinophils (%) (Auto) 0, Basophils (%) (Auto) 0, Neutrophils # (Auto) 11.6H, Lymphocytes # (Auto) 1.0, Monocytes # (Auto) 1.8H, Eosinophils # (Auto) 0.1, Basophils # (Auto) 0.0, Sodium Level 135, Potassium Level 4.4, Chloride Level 100, Carbon Dioxide Level 29, Anion Gap 6, Blood Urea Nitrogen 10, Creatinine 0.80, Estimat Glomerular Filtration Rate > 60, BUN/ Creatinine Ratio 13, Glucose Level 111H, Calcium Level 8.3L, Phosphorus Level 3.7, Magnesium Level 1.7L, Triglycerides Level 89 04/25/17 05:54: Glucometer 141H 04/25/17 12:04: Glucometer 140H 04/26/17 05:30: Glucometer 124H 04/26/17 08:38: Sodium Level 135, Potassium Level 3.4L, Chloride Level 102, Carbon Dioxide Level 25, Anion Gap 8, Blood Urea Nitrogen 7, Creatinine 0.58L, Estimat Glomerular Filtration Rate > 60, BUN/Creatinine Ratio 12, Glucose Level 122H, Calcium Level 8.0L, Phosphorus Level 2.6, Magnesium Level 1.6L, Total Bilirubin 0.4, Aspartate Amino Transf (AST/SGOT) 20, Alanine Aminotransferase (ALT/SGPT) 11, Alkaline Phosphatase 36L, Total Protein 5.6L, Albumin 2.6L 04/27/17 05:30: Sodium Level 138, Potassium Level 3.7, Chloride Level 106, Carbon Dioxide Level 25, Anion Gap 7, Blood Urea Nitrogen 9, Creatinine 0.58L, Estimat Glomerular Filtration Rate > 60, BUN/Creatinine Ratio 16, Glucose Level 89, Calcium Level 8.2L, Phosphorus Level 3.8, Magnesium Level 1.9 04/27/17 05:44: Glucometer 105 04/28/17 05:37: Glucometer 132H Pending Labs Laboratory Tests 04/15/17 15:45: White Blood Count 10.8, Red Blood Count 4.30, Hemoglobin 13.7, Hematocrit 39, Mean Corpuscular Volume 91, Mean Corpuscular Hemoglobin 32, Mean Corpuscular Hemoglobin Concent 35, Red Cell Distribution Width 11.9, Platelet Count 349, Mean Platelet Volume 10.0, Neutrophils (%) (Auto) 79, Lymphocytes (%) (Auto) 11 , Monocytes (%) (Auto) 10, Eosinophils (%) (Auto) 0, Basophils (%) (Auto) 0, Neutrophils # (Auto) 8.5, Lymphocytes # (Auto) 1.2, Monocytes # (Auto) 1.1, Eosinophils # (Auto) 0.0, Basophils # (Auto) 0.0, Erythrocyte Sedimentation Rate 44, Sodium Level 134, Potassium Level 4.0, Chloride Level 98, Carbon Dioxide Level 27, Anion Gap 9, Blood Urea Nitrogen 8, Creatinine 0.82, Estimat Glomerular Filtration Rate > 60, BUN/Creatinine Ratio 10, Glucose Level 89, Calcium Level 9.3, Total Bilirubin 1.1, Aspartate Amino Transf (AST/SGOT) 36, Alanine Aminotransferase (ALT/SGPT) 45, Alkaline Phosphatase 66, C-Reactive Protein High Sensitivity 13.87, Total Protein 8.4, Albumin 3.8, Lipase 10, Anti- Neutrophil Cytoplasmic Ab <1:20, ANCA Pattern Not Indicated, Saccharomyces cerevisiae IgG Ab 25.4, Saccharomyces cerevisiae IgA Ab 33.5 04/15/17 16:00: Urine Color YELLOW, Urine Clarity CLEAR, Urine pH 6, Urine Specific [place] 1.015, Urine Protein 1+, Urine Glucose (UA) NEGATIVE, Urine Ketones 4+, Urine Nitrite NEGATIVE, Urine Bilirubin NEGATIVE, Urine Urobilinogen 1, Urine Leukocyte Esterase NEGATIVE, Urine RBC (Auto) NEGATIVE, Urine RBC NONE, Urine WBC NONE, Urine Crystals NONE, Urine Bacteria NONE, Urine Casts NONE, Urine Mucus SMALL, Urine Culture Indicated NO 04/16/17 06:24: White Blood Count 10.4, Red Blood Count 3.88, Hemoglobin 12.2, Hematocrit 35, Mean Corpuscular Volume 91, Mean Corpuscular Hemoglobin 31, Mean Corpuscular Hemoglobin Concent 35, Red Cell Distribution Width 12.1, Platelet Count 313, Mean Platelet Volume 10.3, Neutrophils (%) (Auto) 72, Lymphocytes (%) (Auto) 15 , Monocytes (%) (Auto) 12, Eosinophils (%) (Auto) 1, Basophils (%) (Auto) 0, Neutrophils # (Auto) 7.5, Lymphocytes # (Auto) 1.6, Monocytes # (Auto) 1.3, Eosinophils # (Auto) 0.1, Basophils # (Auto) 0.0, Sodium Level 135, Potassium Level 4.4, Chloride Level 102, Carbon Dioxide Level 25, Anion Gap 8, Blood Urea Nitrogen 6, Creatinine 0.75, Estimat Glomerular Filtration Rate > 60, BUN/ Creatinine Ratio 8, Glucose Level 95, Calcium Level 8.8, Total Bilirubin 0.9, Aspartate Amino Transf (AST/SGOT) 21, Alanine Aminotransferase (ALT/SGPT) 34, Alkaline Phosphatase 61, Total Protein 7.1, Albumin 3.4 04/18/17 05:40: White Blood Count 7.3, Red Blood Count 3.74, Hemoglobin 11.8, Hematocrit 35, Mean Corpuscular Volume 92, Mean Corpuscular Hemoglobin 32, Mean Corpuscular Hemoglobin Concent 34, Red Cell Distribution Width 12.1, Platelet Count 320, Mean Platelet Volume 10.4, Neutrophils (%) (Auto) 68, Lymphocytes (%) (Auto) 20 , Monocytes (%) (Auto) 11, Eosinophils (%) (Auto) 2, Basophils (%) (Auto) 0, Neutrophils # (Auto) 5.0, Lymphocytes # (Auto) 1.4, Monocytes # (Auto) 0.8, Eosinophils # (Auto) 0.2, Basophils # (Auto) 0.0, Erythrocyte Sedimentation Rate 49, Sodium Level 137, Potassium Level 4.0, Chloride Level 103, Carbon Dioxide Level 28, Anion Gap 6, Blood Urea Nitrogen 11, Creatinine 0.76, Estimat Glomerular Filtration Rate > 60, BUN/Creatinine Ratio 14, Glucose Level 110, Calcium Level 8.9, Total Bilirubin 0.3, Aspartate Amino Transf (AST/SGOT) 17, Alanine Aminotransferase (ALT/SGPT) 21, Alkaline Phosphatase 49, Total Protein 6.9, Albumin 3.2 04/19/17 05:40: Anti-Neutrophil Cytoplasmic Ab [Pending], Saccharomyces cerevisiae IgG Ab [ Pending], Saccharomyces cerevisiae IgA Ab [Pending] 04/24/17 05:00: White Blood Count 14.5, Red Blood Count 3.79, Hemoglobin 11.8, Hematocrit 35, Mean Corpuscular Volume 93, Mean Corpuscular Hemoglobin 31, Mean Corpuscular Hemoglobin Concent 34, Red Cell Distribution Width 12.5, Platelet Count 348, Mean Platelet Volume 10.2, Neutrophils (%) (Auto) 80, Lymphocytes (%) (Auto) 7, Monocytes (%) (Auto) 12, Eosinophils (%) (Auto) 0, Basophils (%) (Auto) 0, Neutrophils # (Auto) 11.6, Lymphocytes # (Auto) 1.0, Monocytes # (Auto) 1.8, Eosinophils # (Auto) 0.1, Basophils # (Auto) 0.0, Sodium Level 135, Potassium Level 4.4, Chloride Level 100, Carbon Dioxide Level 29, Anion Gap 6, Blood Urea Nitrogen 10, Creatinine 0.80, Estimat Glomerular Filtration Rate > 60, BUN/ Creatinine Ratio 13, Glucose Level 111, Calcium Level 8.3, Phosphorus Level 3.7 , Magnesium Level 1.7, Triglycerides Level 89 04/25/17 05:54: Glucometer 141 04/25/17 12:04: Glucometer 140 04/26/17 05:30: Glucometer 124 04/26/17 08:38: Sodium Level 135, Potassium Level 3.4, Chloride Level 102, Carbon Dioxide Level 25, Anion Gap 8, Blood Urea Nitrogen 7, Creatinine 0.58, Estimat Glomerular Filtration Rate > 60, BUN/Creatinine Ratio 12, Glucose Level 122, Calcium Level 8.0, Phosphorus Level 2.6, Magnesium Level 1.6, Total Bilirubin 0.4, Aspartate Amino Transf (AST/SGOT) 20, Alanine Aminotransferase (ALT/SGPT) 11, Alkaline Phosphatase 36, Total Protein 5.6, Albumin 2.6 04/27/17 05:30: Sodium Level 138, Potassium Level 3.7, Chloride Level 106, Carbon Dioxide Level 25, Anion Gap 7, Blood Urea Nitrogen 9, Creatinine 0.58, Estimat Glomerular Filtration Rate > 60, BUN/Creatinine Ratio 16, Glucose Level 89, Calcium Level 8.2, Phosphorus Level 3.8, Magnesium Level 1.9 04/27/17 05:44: Glucometer 105 04/28/17 05:37: Glucometer 132 Discharge Home Medications: Active Scripts Active Hydrocodone/Acetaminophen 5/325mg Tablet (Acetaminophen/Hydrocodone Bitart) 1 Tab Tab 1-2 Tab PO 4-6HR PRN Instructions to patient/family Please see electronic discharge instructions given to patient. Clinical Quality Measures DVT/VTE Risk/Contraindication: Risk Factor Score Per Nursin RFS Level Per Nursing on Admit: 3=High ALBIN DRISCOLL MD Apr 28, 2017 10:19 am
[2017-04-28] MEDS: ENOXAPARIN 40 MG/0.4 ML (LOVENOX) SYR SC SCH (13:10)
[2017-04-28 16:25] VITALS: BP 129/70
[2017-04-28] MEDS: [UNRECOGNIZED DRUG - OTHER] IV SCH ×11 (17:04)
[2017-04-28] MEDS: SODIUM CHLORIDE IV SCH ×11 (17:04)
[2017-04-28] MEDS: SODIUM ACETATE IV SCH ×11 (17:04)
[2017-04-29 00:25] VITALS: BP 128/77
[2017-04-29 08:00] VITALS: BP 132/75
[2017-04-29 14:30] VITALS: BP 128/88
--- NOTE | 2017-04-29 15:06 | Progress Note-Standard ---
Standard Progress Note Progress Notes/Assess & Plan Date Seen by Provider: Apr 29, 2017 Time Seen by Provider: 13:00 Progress/Assessment & Plan Reports inadequate pain control. . Encouraged him to move around. Toradol will be used to optimize his pain control. Minimal output from the nasogastric tube, which could be removed later today. Good urine output. Electrolytes normal. Pain control better. NG tube removed. Incisions dry. temperature 100.2. Continue TPN pain control better. Incisions dry. Passed bloody stools. We'll continue TPN for now passing normal stools. No abdominal distention. Scrotal edema. No tenderness of the testicles. Appetite improving. TPN could be tapered off in the morning and stopped tomorrow evening. Possible discharge on morning. improving. TPN will be stopped today; discharge tomorrow doing well. Discharged today Final Diagnosis diverticular stricture of the descending colon ALBIN DRISCOLL MD Apr 29, 2017 3:06 pm
== END 2017-04-29 14:30 | disposition home or self-care (01) | DRG 330 ==
LOC: EDUNIT# 15:09 → ER 15:12 → 4TH 18:22
PROVIDERS: ADMIT Surgery; ATTEND Surgery
PROC: 0DJD8ZZ Inspection of Lower Intestinal Tract, Via Natural or Artificial Opening Endoscopic (ICD-10-PCS; principal; 2017-04-21 14:09)
PROC: 0DTG0ZZ Resection of Left Large Intestine, Open Approach (ICD-10-PCS; 2017-04-23)
PROC: 0DTJ0ZZ Resection of Appendix, Open Approach (ICD-10-PCS; 2017-04-23)
PROC: 0DBP4ZZ Excision of Rectum, Percutaneous Endoscopic Approach (ICD-10-PCS; 2017-04-23)
PROC: 8E0W4CZ Robotic Assisted Procedure of Trunk Region, Percutaneous Endoscopic Approach (ICD-10-PCS; 2017-04-23)
DX: K57.20 Diverticulitis of large intestine with perforation and abscess without bleeding (principal); K38.9 Disease of appendix, unspecified; N50.89 Other specified disorders of the male genital organs; F17.210 Nicotine dependence, cigarettes, uncomplicated; K21.9 Gastro-esophageal reflux disease without esophagitis; K59.09 Other constipation; F31.9 Bipolar disorder, unspecified; K64.4 Residual hemorrhoidal skin tags; Z53.31 Laparoscopic surgical procedure converted to open procedure
CPT/HCPCS: 36415; 71045; 74018; 74177; 74270; 80048; 80053; 81000; 82962; 83690; 83735; 84100; 84478; 85025; 85652; 86021; 86141; 86671; 94664; 96361; 96374; 96375

== ENCOUNTER 2020-07-25 05:37 | Outpatient (RCR) | payer MEDICAID ==
[~2020-07-25] VITALS: Ht 193 cm; Wt 104.7 kg
[~2020-07-25 05:37] MED LIST: ACHD5005 PO
[2020-07-26] MEDS ORDERED: OMEP-401 PO (14:40)
[2020-07-26] MEDS ORDERED: QUET50TA22 PO (14:40)
[2020-07-26] MEDS ORDERED: VENL75TA2 PO (14:40)
[2020-07-26] MEDS ORDERED: ERGO50006 PO (14:40)
[2020-07-26] MEDS ORDERED: BUSP15TA60 PO (14:40)
== END 2020-07-29 08:17 | disposition home or self-care (01) ==
LOC: PREOP 05:37
PROVIDERS: ATTEND Surgery
DX: Z01.818 Encounter for other preprocedural examination (principal)

== ENCOUNTER 2020-08-02 06:39 | Day surgery (SDC) | payer MEDICAID ==
[~2020-08-02] VITALS: Ht 193 cm; Wt 104.7 kg
[~2020-08-02 06:39] MED LIST changes: +BUSP15TA60 PO; +ERGO1250 PO; +OMEP-401 PO; +QUET50TA22 PO; +VENL75TA2 PO
[2020-08-02] MEDS ORDERED: LACTATED RINGERS 1,000 ML IV STA (06:56)
[2020-08-02] MEDS ORDERED: HURRICAINE EXT TUBE (BENZOCAINE) XX PRN (07:00)
[2020-08-02] MEDS ORDERED: LACTATED RINGERS 1,000 ML IV ONE (07:01)
[2020-08-02 07:18] VITALS: BP 122/89
[2020-08-02] MEDS ORDERED: PROPOFOL INJECTION 50 ML IV ONE ×3 (07:20→07:39)
[2020-08-02] MEDS ORDERED: MIDAZOLAM 2 MG/2 ML (VERSED) VIAL ONE ×2 (07:20→07:37)
--- NOTE | 2020-08-02 07:28 | Progress Note-Pre Operative ---
Pre-Operative Progress Note H&P Reviewed The H&P was reviewed, patient examined and no changes noted. Date Seen by Provider: Aug 02, 2020 Time Seen by Provider: : Date H&P Reviewed: Aug 02, 2020 Time H&P Reviewed: : Pre-Operative Diagnosis: gerd, hx colonic stricture GHAZALA PARKER DO Aug 02, 2020 07:28
[2020-08-02] MEDS ORDERED: KETAMINE SYRINGE 50 MG/5 ML SYRINGE ONE (07:39)
[2020-08-02 08:10] VITALS: BP 110/59
[2020-08-02 08:15] VITALS: BP 108/56
[2020-08-02 08:20] VITALS: BP 107/56
--- NOTE | 2020-08-02 08:20 | Discharge Inst-Simple/Standard ---
Discharge Inst-Standard Patient Instructions/Follow Up Plan of Care/Instructions/FU: 2 weeks She[place] Activity as Tolerated: Yes Discharge Diet: Regular Diet GHAZALA PARKER DO Aug 02, 2020 08:20
--- NOTE | 2020-08-02 08:20 | Progress Note-Post Operative ---
Post-Operative Progess Note Surgeon (s)/Training Instructor (s) Surgeon GHAZALA PARKER DO Training Instructor: Not applicable Pre-Operative Diagnosis gerd, hx colonic stricture Post-Operative Diagnosis Normal EGD, colon polyps Procedure & Operative Findings Date of Procedure 08/02/20 Procedure Performed/Findings EGD biopsies, colonoscopy with hot biopsy polypectomy x4 Anesthesia Type Per CLIENT RENEWAL SPECIALIST Estimated Blood Loss Estimated blood loss (mL): None Specimens/Packing Specimens Removed Antrum, GE junction, colon polyps GHAZALA PARKER DO Aug 02, 2020 08:20
[2020-08-02 08:25] VITALS: BP_SYST 113; BP_SYST 115; BP_DIAS 67
[2020-08-02 08:50] VITALS: BP 115/70
--- NOTE | 2020-08-02 12:59 | Anesthesia-General Post-Op ---
MAC Patient Condition Mental Status/LOC: Same as Preop Cardiovascular: Satisfactory Nausea/Vomiting: Absent Respiratory: Satisfactory Pain: Controlled Complications: Absent Post Op Complications Complications None Follow Up Care/Instructions Patient Instructions None needed. Anesthesiology Discharge Order Discharge Order Patient is doing well, no complaints, stable vital signs, no apparent adverse anesthesia problems. No complications reported per nursing. NORM DOZIER CRNA Aug 02, 2020 12:59
--- NOTE | 2020-08-02 17:12 | OPERATIVE REPORT ---
DATE OF SERVICE: 08/02/2020 PREOPERATIVE DIAGNOSES: Gastroesophageal reflux disease, history of colonic stricture. POSTOPERATIVE DIAGNOSES: Normal EGD, colon polyps. PROCEDURE: EGD with biopsies, colonoscopy with hot biopsy polypectomy x4. SURGEON: Lucas Valdivia DO ANESTHESIA: Per COUNSELOR/ART THERAPIST. ESTIMATED BLOOD LOSS: None. COMPLICATIONS: None. INDICATIONS: The patient is a 34-year-old male with history of colonic stricture and GERD symptoms. He understands risks and benefits of procedure and wished to proceed with procedure. Consent was signed in the chart. DESCRIPTION OF PROCEDURE: The patient was taken to the endoscopy suite, placed in left lateral recumbent position. Timeout was performed. Scope was inserted in mouth, down the esophagus, stomach and into the duodenum without difficulty. There were no polyps, masses or ulcerations within the duodenum. Scope was slowly retracted back into the stomach where it was further insufflated. No polyps, masses or ulcerations visualized. Biopsy of the antrum was obtained. Scope was retroflexed noting no other pathology. Scope was returned to its normal position, slowly withdrawn to distal esophagus. No polyps, masses or ulcerations. Biopsy of the GE junction was obtained. Scope was slowly retracted back until completely removed. Digital rectal exam was performed. There were no palpable polyps, masses or ulcerations. Scope was inserted in the rectum, advanced all the way to cecum with minimal difficulty. Prep was adequate. Scope was then slowly retracted back. No polyps, masses or ulcerations within the cecum, ascending, transverse and descending colon. In the sigmoid colon, a small polyp was present, which hot biopsy polypectomy was performed. Scope was then continuously retracted back and in the rectosigmoid junction, a small polyp was present, which hot biopsy polypectomy was performed. Scope was then continued slowly retracted back. The anastomosis had normal appearance. There were 2 polyps in the rectum, which hot biopsy polypectomy was performed. Scope was also retroflexed noting no other pathology except for internal hemorrhoids. Scope was returned to its normal position, slowly withdrawn until completely removed. The patient tolerated procedure well without any complications and taken to recovery room in stable condition. RECOMMENDATIONS: The patient to continue on current medications. He is on omeprazole. I would recommend repeat colonoscopy in 3 to 5 years depending on pathology for reevaluation. Any issues before that be seen at that time. Job ID: [id number] DocumentID: [id number] Dictated Date: 08/02/2020 11:23:32 Commodity Supervisor Date: 08/02/2020 17:11:28 Dictated By: DO JEAN PETE
== END 2020-08-02 09:00 | disposition home or self-care (01) ==
LOC: ENDO 06:39
PROVIDERS: ATTEND Surgery
DX: K21.9 Gastro-esophageal reflux disease without esophagitis (principal); D12.8 Benign neoplasm of rectum; I10 Essential (primary) hypertension; F41.9 Anxiety disorder, unspecified; F17.210 Nicotine dependence, cigarettes, uncomplicated; Z90.49 Acquired absence of other specified parts of digestive tract; Z79.2 Long term (current) use of antibiotics; Z79.899 Other long term (current) drug therapy; Z87.19 Personal history of other diseases of the digestive system

== ENCOUNTER 2021-06-23 06:58 | Emergency (ER) | payer OTHER, MEDICAID ==
[~2021-06-23] VITALS: Ht 192 cm; Wt 97.0 kg
[~2021-06-23 06:58] MED LIST changes: -QUET50TA22 PO; +QUET50TA23 PO
[2021-06-23] MEDS ORDERED: LISI20TA26 PO (07:21)
[2021-06-23] MEDS ORDERED: MTP25TSR PO (07:21)
[2021-06-23 07:25] LABS: BASOPHILS # (AUTO) 0.1 10^3/uL (0.0-0.1); BASOPHILS % (AUTO) 1 % (0-10); EOSINOPHILS # (AUTO) 0.2 10^3/uL (0.0-0.3); EOSINOPHILS % (AUTO) 2 % (0-10); HEMATOCRIT 45 % (40-54); HEMOGLOBIN 15.3 g/dL (13.3-17.7); LYMPHOCYTES # (AUTO) 3.2 10^3/uL (1.0-4.0); LYMPHOCYTES % (AUTO) 32 % (12-44); MEAN CORPUSCULAR HEMOGLOBIN 31 pg (25-34); MEAN CORPUSCULAR HGB CONC 34 g/dL (32-36); MEAN CORPUSCULAR VOLUME 92 fL (80-99); MEAN PLATELET VOLUME 10.3 fL (9.0-12.2); MONOCYTES # (AUTO) 0.7 10^3/uL (0.0-1.0); MONOCYTES % (AUTO) 7 % (0-12); NEUTROPHILS # (AUTO) 5.7 10^3/uL (1.8-7.8); NEUTROPHILS % (AUTO) 58 % (42-75); PLATELET COUNT 245 10^3/uL (130-400); WHITE BLOOD COUNT 9.8 10^3/uL (4.3-11.0)
--- NOTE | 2021-06-23 07:25 | ED Chest Pain ---
General Chief Complaint: Chest Pain Stated Complaint: CHEST TIGHTNESS, L ARM PAIN, VISION PROBLEMS Nursing Triage Note: pt states he became clammy with bi lat blindness and lt upper chest pain radiating into lt arm about 0615, pt was at work when this happened. Source: patient Exam Limitations: no limitations History of Present Illness Date Seen by Provider: June 23, 2021 Time Seen by Provider: 07:10 Initial Comments Patient is a 35-year-old male who presents to the emergency department from work this morning chief complaint of chest tightness and vision "going black". Onset about 6:15am. Patient states that he was standing at work and started experiencing chest tightness. He states he started to feel lightheaded and experienced his vision going black. He sat down and he states his symptoms of chest tightness lasted for about 15 minutes. He also states he had a "tightness" in the back of his neck. A little bit nauseous not short of breath. The vision issues lasted for about a minute. He has never had symptoms quite like this before. He was not exerting himself. He has no history of coronary artery disease but does take medications for hypertension. He smokes about "a pack a week". He states his mother has a history of mitral valve issues and his grandmother has heart disease. He has never had a stress test. He denies any recent illnesses. History of mental health issues as well as diverticulosis with partial bowel resection. Currently asymptomatic. All other review of systems reviewed and negative except as stated. Timing/Duration: 1 hour Severity/Quality: moderate, tightness Location: central Radiation: back (back of neck) Activities at Onset: rest Prior CP/Workup: other ("gastritis") Modifying Factors: improves with rest ASA po RESIDENTIAL CONSTRUCTION INSTRUCTOR: No NTG SL RESIDENTIAL CONSTRUCTION INSTRUCTOR: No Associated Symptoms: dizziness ("light headed"), headache (mild) Allergies and Home Medications Allergies Coded Allergies: No Known Drug Allergies (Unverified , 04/15/17) Patient Home Medication List Home Medication List Reviewed: Yes Buspirone HCl (Buspirone HCl) 15 Mg Tablet, 15 MG PO DAILY, (Reported) Entered as Reported by: EDGAR MEDINA on 07/26/20 1440 Ergocalciferol (Vitamin D2) (Vitamin D2) 1,250 Mcg Capsule, 1,250 MCG PO DAILY, (Reported) Entered as Reported by: EDGAR MEDINA on 07/26/20 1440 Lisinopril (Lisinopril) 20 Mg Tablet, 20 MG PO DAILY, (Reported) Entered as Reported by: TYLOR FERRER on 06/23/21720 Last Action: New Order Metoprolol Succinate (Metoprolol Succinate) 25 Mg Tab.er.24h, 25 MG PO DAILY, (Reported) Entered as Reported by: TYLOR FERRER on 06/23/21720 Last Action: New Order Omeprazole (Omeprazole) 20 Mg Tab.rap.dr, 20 MG PO DAILY, (Reported) Entered as Reported by: EDGAR MEDINA on 07/26/20 144 Quetiapine Fumarate (Quetiapine Fumarate) 50 Mg Tablet, 50 MG PO DAILY, (Reported) Entered as Reported by: EDGAR MEDINA on 07/26/201439 Review of Systems Review of Systems Constitutional: see HPI EENTM: No Symptoms Reported Respiratory: No Symptoms Reported Cardiovascular: Chest Pain Gastrointestinal: Nausea Genitourinary: No Symptoms Reported Musculoskeletal: neck pain Skin: no symptoms reported Psychiatric/Neurological: Other (light headed) All Other Systems Reviewed Negative Unless Noted: Yes Past Zppqjph-Ehview-Xqboaj Hx Immunizations Up To Date Tetanus Booster (TDap): Unknown Seasonal Allergies Seasonal Allergies: Yes Past Medical History Surgeries: Yes (SHOULDER, BOWEL RESECTION) Orthopedic Respiratory: No Cardiac: No Neurological: No Sexually Transmitted Disease: No HIV/AIDS: No Genitourinary: Yes Kidney Infection Gastrointestinal: Yes Colitis, Gastroesophageal Reflux, Chronic Constipation Musculoskeletal: Yes Chronic Back Pain Endocrine: No HEENT: No Cancer: No Psychosocial: Yes Bipolar, Depression Integumentary: No Blood Disorders: No Physical Exam Vital Signs Vital Signs - First Documented 06/23/21 07:08 Temp 35.9 Pulse 70 Resp 18 B/P (MAP) 130/68 (88) Pulse Ox 100 O2 Delivery Room Air Capillary Refill : Less Than 3 Seconds Height, Weight, BMI Height: 6'4.00" Weight: 195lbs. 6.0oz. [id number]; 26.00 BMI Method:Stated General Appearance: No Apparent Distress, WD/WN HEENT: PERRL/EOMI Neck: Normal Inspection Respiratory: Lungs Clear, Normal Breath Sounds, No Accessory Muscle Use, No Respiratory Distress Cardiovascular: Regular Rate, Rhythm (60"s), Normal Peripheral Pulses Gastrointestinal: Normal Bowel Sounds, No Organomegaly, Non Tender, Soft Extremity: Normal Inspection, Normal Range of Motion, No Pedal Edema Neurologic/Psychiatric: Alert, Oriented x3, No Motor/Sensory Deficits, Normal Mood/Affect, community specialist II-XII Norm as Tested Skin: Normal Color, Warm/Dry Progress/Results/Core Measures Results/Orders Lab Results Laboratory Tests Test 06/23/21 07:10 06/23/21 09:30 Range/Units White Blood Count 9.8 4.3-11.0 10^3/uL Red Blood Count 4.91 4.30-5.52 10^6/uL Hemoglobin 15.3 13.3-17.7 g/dL Hematocrit 45 40-54 % Mean Corpuscular Volume 92 80-99 fL Mean Corpuscular Hemoglobin 31 25-34 pg Mean Corpuscular Hemoglobin Concent 34 32-36 g/dL Red Cell Distribution Width 12.6 10.0-14.5 % Platelet Count 245 130-400 10^3/uL Mean Platelet Volume 10.3 9.0-12.2 fL Immature Granulocyte % (Auto) 0 % Neutrophils (%) (Auto) 58 42-75 % Lymphocytes (%) (Auto) 32 12-44 % Monocytes (%) (Auto) 7 0-12 % Eosinophils (%) (Auto) 2 0-10 % Basophils (%) (Auto) 1 0-10 % Neutrophils # (Auto) 5.7 1.8-7.8 10^3/uL Lymphocytes # (Auto) 3.2 1.0-4.0 10^3/uL Monocytes # (Auto) 0.7 0.0-1.0 10^3/uL Eosinophils # (Auto) 0.2 0.0-0.3 10^3/uL Basophils # (Auto) 0.1 0.0-0.1 10^3/uL Immature Granulocyte # (Auto) 0.0 0.0-0.1 10^3/uL Prothrombin Time 13.9 12.2-14.7 SEC INR Comment 1.0 0.8-1.4 Activated Partial Thromboplast Time 24 24-35 SEC Sodium Level 140 135-145 MMOL/L Potassium Level 3.9 3.6-5.0 MMOL/L Chloride Level 103 98-107 MMOL/L Carbon Dioxide Level 29 21-32 MMOL/L Anion Gap 8 5-14 MMOL/L Blood Urea Nitrogen 8 7-18 MG/DL Creatinine 1.03 0.60-1.30 MG/DL Estimat Glomerular Filtration Rate 96 BUN/Creatinine Ratio 8 Glucose Level 116 H 70-105 MG/DL Calcium Level 9.4 8.5-10.1 MG/DL Corrected Calcium 9.2 8.5-10.1 MG/DL Magnesium Level 1.7 1.6-2.4 MG/DL Total Bilirubin 0.7 0.1-1.0 MG/DL Aspartate Amino Transf (AST/SGOT) 17 5-34 U/L Alanine Aminotransferase (ALT/SGPT) 18 0-55 U/L Alkaline Phosphatase 64 40-136 U/L Myoglobin 29.2 10.0-92.0 NG/ML Troponin I < 0.028 < 0.028 <0.028 NG/ML Total Protein 7.2 6.4-8.2 GM/DL Albumin 4.2 3.2-4.5 GM/DL My Orders Orders - LEELEE TOM MD Ekg Tracing (06/23/21 07:07) Cbc With Automated Diff (06/23/21 07:19) Magnesium (06/23/21 07:19) Chest 1 View, Ap/Pa Only (06/23/21 07:19) Comprehensive Metabolic Panel (06/23/21 07:19) Myoglobin Serum (06/23/21 07:19) Protime With Inr (06/23/21 07:19) Partial Thromboplastin Time (06/23/21 07:19) O2 (06/23/21 07:19) Monitor-Rhythm Ecg Trace Only (06/23/21 07:19) Lipid Panel (06/24/21 06:00) Ed Iv/Invasive Line Start (06/23/21 07:19) Troponin I [place] (06/23/21 07:19) Aspirin Chewable Tablet (Baby Aspirin Ch (06/23/21 07:30) Troponin I [place] (06/23/21 09:30) Medications Given in ED Current Medications Medications Dose Ordered Sig/[place]ha Route Start Time Stop Time Status Last Admin Dose Admin Aspirin 324 mg ONCE ONCE PO 06/23/21 07:30 06/23/21 07:31 DC 06/23/21 07:27 324 MG Vital Signs/I&O 06/23/21 07:08 Temp 35.9 Pulse 70 Resp 18 B/P (MAP) 130/68 (88) Pulse Ox 100 O2 Delivery Room Air Blood Pressure Mean: 88 Progress Progress Note : Time: 10:39 Progress Note Patient second set of cardiac enzymes was reviewed and negative. He has been resting comfortably in a normal sinus rhythm since arrival here in the emergency department. He is also been asymptomatic since he arrived here in the emergency department. No recurrence of symptoms. His vital signs look great. Systolic blood pressure 133. I spoke with him about smoking cessation, compliance with his medications and follow-up with the clinic at work. The clinic is who follows him for all of his daily medications. He states at one point in the past they recommended he have a stress test but he states his schedule was too busy to be able to get that done. I did reinforce that if they believe it is a good idea that he should probably go ahead and get that done. We talked about return precautions to include coming back if he has a recurrence of chest pressure/tightness/heaviness especially with nausea, shortness of breath or sweating while he is exerting himself he needs to come back. Also if he has recurrence of visual complaints, headache nausea or vomiting. Patient verbalized understanding of the plan of care and is comfortable with it. All questions are sought and answered. Patient's heart score is essentially a 1 which puts him at low risk for Mace Initial ECG Impression Date: June 23, 2021 Initial ECG Impression Time: 07:12 Initial ECG Rate: 61 Initial ECG Rhythm: Normal Sinus Initial ECG Intervals: Normal Initial ECG Intervals IL 195 QRS 92 QTc 393 Comment Peaked T waves in the anterior leads with J-point elevation/early repolarization pattern V2 V3 No ST segment elevation or depression. No ectopy is noted. Diagnostic Imaging Diagonstic Imaging: Xray Plain Films/CT/US/NM/MRI: chest Comments [facility] [place], [place] NAME: MIKE MARCANOHERNAN Cook [facility] REC#: [id number] PT STATUS: REG ER : 1985 PHYSICIAN: LEELEE TOM MD ADMIT DATE: 06/23/21/ER Signed Date of Exam:06/23/21 CHEST 1 VIEW, AP/PA ONLY EXAMINATION: Chest 1 view HISTORY: Chest pain COMPARISON: 04/23/2017 FINDINGS: Heart size and pulmonary vasculature are normal. The lungs are clear without consolidation, pleural effusion, or pneumothorax. The osseous structures are intact. IMPRESSION: 1. No acute radiographic abnormality in the chest. Dictated by: Dictated on workstation # [id number] Dict: 06/23/21 0755 Trans: 06/23/21 08[facility] [id number] Interpreted by: JILLIAN LIZARRAGA DO Electronically signed by: JILLIAN LIZARRAGA DO 06/23/21 08 Departure Impression Primary Impression: Chest pain Qualified Codes: R07.9 - Chest pain, unspecified Disposition: HOME, SELF-CARE Condition: Stable Departure-Patient Inst. Decision time for Depature: 10:41 Referrals: [facility] (PCP/Family) Primary Care Physician Patient Instructions: Chest Pain, Adult ED Add. Discharge Instructions: Please continue to take all of your prescribed medications as directed. Please follow-up with the clinic at work for further evaluation of the chest pain you had today. You may need to go ahead and have a stress test done. Take a daily baby aspirin. You should really try and stop smoking completely. Return to the emergency room for any worsening chest pain especially with the recurrence of the symptoms you had today and also if you develop shortness of breath, nausea or sweating with the chest pain. Work/School Note: Work Release Form Date Seen in the Emergency Department: June 23, 2021 Return to Work: June 23, 2021 LEELEE TOM MD June 23, 2021 07:25
[2021-06-23 07:30] LABS: ALBUMIN 4.2 GM/DL (3.2-4.5); POTASSIUM 3.9 MMOL/L (3.6-5.0)
[2021-06-23] MEDS ORDERED: ASPIRIN 81 MG CHEW (CHILDREN'S ASA) PO ONE (07:30)
[2021-06-23 07:31] LABS: CALCIUM 9.4 MG/DL (8.5-10.1); PROTHROMBIN TIME PATIENT 13.9 SEC (12.2-14.7)
[2021-06-23 07:33] LABS: TOTAL PROTEIN 7.2 GM/DL (6.4-8.2)
[2021-06-23 07:34] LABS: BILIRUBIN,TOTAL 0.7 MG/DL (0.1-1.0)
[2021-06-23 07:36] LABS: CREATININE SERUM 1.03 MG/DL (0.60-1.30)
[2021-06-23 07:39] LABS: MAGNESIUM 1.7 MG/DL (1.6-2.4)
--- NOTE | 2021-06-23 07:57 | Diagnostic Imaging Report ---
EXAMINATION: Chest 1 view HISTORY: Chest pain COMPARISON: 04/23/2017 FINDINGS: Heart size and pulmonary vasculature are normal. The lungs are clear without consolidation, pleural effusion, or pneumothorax. The osseous structures are intact. IMPRESSION: 1. No acute radiographic abnormality in the chest. Dictated by: Dictated on workstation # [id number]
[2021-06-23 10:50] VITALS: BP 105/74
== END 2021-06-23 10:50 | disposition home or self-care (01) ==
LOC: EDUNIT# 06:58 → ER 07:00
DX: R07.89 Other chest pain (principal); R94.31 Abnormal electrocardiogram [ECG] [EKG]; I10 Essential (primary) hypertension; F17.210 Nicotine dependence, cigarettes, uncomplicated; Z79.899 Other long term (current) drug therapy
CPT/HCPCS: 36415; 71045; 80053; 83735; 83874; 84484; 85025; 85610; 85730; 93005; 93041